=== PATIENT | male | born 1930 | race Caucasian/White ===

== ENCOUNTER → 2016-11-03 | Outpatient (REF) | payer MEDICARE, OTHER | LOC: M SFHCCLAY 11:40 | PROVIDERS: ATTEND Family Medicine | DX: E11.9 Type 2 diabetes mellitus without complications (principal); Z53.8 Procedure and treatment not carried out for other reasons ==

== ENCOUNTER → 2016-11-10 | Outpatient (REF) | payer MEDICARE, OTHER ==
[2016-11-10 11:42] LABS: CALCIUM LEVEL 9.2 MG/DL (8.8-10.2); CREATININE FOR GFR 1.28 MG/DL (0.70-1.30); GLOMERULAR FILTRATION RATE 56.6 (>35); POTASSIUM SERUM 4.2 MEQ/L (3.5-5.1)
== END | disposition home or self-care (01) ==
LOC: M SFHCCLAY 07:02
PROVIDERS: ATTEND Family Medicine
DX: E11.9 Type 2 diabetes mellitus without complications (principal)

== ENCOUNTER → 2017-03-30 | Outpatient (REF) | payer MEDICARE, OTHER ==
[2017-03-30 17:22] LABS: ALBUMIN 4.3 GM/DL (3.2-5.2); ALBUMIN/GLOBULIN RATIO 1.39 (1.00-1.93); BILIRUBIN,TOTAL 0.6 MG/DL (0.2-1.0); CALCIUM LEVEL 9.5 MG/DL (8.8-10.2); CREATININE FOR GFR 1.41 MG/DL (0.70-1.30); FREE T4 0.98 NG/DL (0.76-1.46); GLOMERULAR FILTRATION RATE 50.6 (>35); POTASSIUM SERUM 3.6 MEQ/L (3.5-5.1); TOTAL PROTEIN 7.4 GM/DL (6.4-8.2)
== END ==
LOC: M SFHCCLAY 12:24
PROVIDERS: ATTEND Family Medicine
DX: E11.9 Type 2 diabetes mellitus without complications (principal)

== ENCOUNTER → 2017-06-29 | Outpatient (CLI) | payer MEDICARE, BC, OTHER ==
[~2017-06-29] MED LIST: ADV500INH INH; AMLO5TAB2 PO; ASPI1TAB20 PO; ASPI325T PO; COLA100C5 PO; FENO134C PO; FINA5TAB2 PO; FLOM5CAP PO; FURO20TA2 PO; JANU100T PO; METF10004 PO; NORCOTAB PO; PANT40TA2 PO; PRAV40TA2 PO; SENN18TA PO; VITA1CAP40 PO
--- NOTE | 2017-06-29 11:13 | REP ---
Chest x-ray: Two views. History: Right-sided chest pain. Comparison chest x-ray: September 18, 2016. Findings: The patient is status post aortic valve replacement via median sternotomy. The heart is not enlarged. The aorta is somewhat tortuous unchanged. The lungs are symmetrically aerated and free of infiltrate. Pleural angles are sharp. There are mild degenerative changes in the thoracic spine. Pulmonary vasculature is not increased. Impression: No active disease. The patient status post aortic valve replacement.
== END ==
LOC: M CLY 10:01
PROVIDERS: ATTEND Family Medicine
DX: R07.9 Chest pain, unspecified (principal); Z95.2 Presence of prosthetic heart valve
CPT/HCPCS: 71020; 80069; 93005; G0463

== ENCOUNTER → 2017-06-29 | Outpatient (REF) | payer MEDICARE, OTHER ==
[2017-06-29 12:38] LABS: ALBUMIN 3.9 GM/DL (3.2-5.2); CALCIUM LEVEL 9.7 MG/DL (8.8-10.2); CREATININE FOR GFR 1.24 MG/DL (0.70-1.30); GLOMERULAR FILTRATION RATE 58.6 (>35); PHOSPHORUS LEVEL 2.1 MG/DL (2.5-4.9); POTASSIUM SERUM 3.8 MEQ/L (3.5-5.1)
== END ==
LOC: M SFHCCLAY 09:31
PROVIDERS: ATTEND Family Medicine
DX: E11.9 Type 2 diabetes mellitus without complications (principal)

== ENCOUNTER → 2017-07-17 | Outpatient (REF) | payer MEDICARE, BC, OTHER ==
[2017-07-17 17:57] LABS: TOTAL PROTEIN 7.4 GM/DL (6.4-8.2)
[2017-07-19 12:12] LABS: ALBUMIN 4.39 GM/DL (3.29-5.55); ALBUMIN % 59.3 % (55.8-66.1); GAMMA GLOBULIN % 12.7 % (11.1-18.8)
== END ==
LOC: M SFHCCLAY 11:42
PROVIDERS: ATTEND Family Medicine
DX: R07.81 Pleurodynia (principal); M89.8X9 Other specified disorders of bone, unspecified site; Z79.82 Long term (current) use of aspirin; Z79.899 Other long term (current) drug therapy
CPT/HCPCS: 84153; 84165; 85652; G0463

== ENCOUNTER → 2017-07-23 | Outpatient (CLI) | payer MEDICARE, BC, OTHER ==
--- NOTE | 2017-07-23 13:05 | REP ---
HIDA SCAN WITH GALLBLADDER EJECTION FRACTION: Following the intravenous administration of 6.6 mCi of technetium-99m mebrofenin, multiple images of the right upper quadrant are performed every 5 minutes for a period of 1 hour. Gallbladder is visualized at 10 minutes post injection. There is biliary to bowel transit at 50 minutes post injection with no scintigraphic evidence of a cholecystitis. At the 1 hour narinder 8 ounces of Ensure Enlive was ingested and further imaging performed for 1 hour. Gallbladder activity is measured and the gallbladder ejection fraction is calculated to be 86% which is normal. IMPRESSION: Normal gallbladder ejection fraction. Signed by Konrad Mo MD 07/23/2017 04:12 P
== END ==
LOC: M RAD 07:38
PROVIDERS: ATTEND Family Medicine
DX: R10.11 Right upper quadrant pain (principal)
CPT/HCPCS: 78227; A9537; J2805

== ENCOUNTER → 2017-08-01 | Outpatient (CLI) | payer MEDICARE, BC, OTHER ==
[~2017-08-01] MED LIST changes: +GASTROGRAFIN SOLUTION 30ML (Q9963) As Ordered ONE; +ISOVUE-370 76% 100ML VIAL (Q9967) As Ordered ONE
--- NOTE | 2017-08-01 17:06 | REP ---
CT abdomen and pelvis without and with IV contrast: With oral contrast. History: Weight loss. CT contrast dose: 100 ml of Isovue [address] findings: Preliminary digital glass cleaner radiograph is unremarkable. The lung bases are clear. The patient appears to be status post aortic valve replacement. The liver is normal in size and homogeneous in texture. There are multiple nonenhancing low density cysts in the spleen. The largest of these measures 1.7 cm in greatest diameter. No pancreatic abnormality is observed. No adrenal abnormality is seen. The kidneys enhance symmetrically. There is an intrarenal calculus in the lower pole collecting system left kidney measuring 5 mm in greatest diameter. There is a second smaller calculus even lower in the collecting system of the lower pole on the left. No hydronephrosis is seen. No intrarenal calculus is seen on the right. No retroperitoneal mass or adenopathy is seen. Small and large intestinal bowel loops are normal in the abdomen and pelvis. No gallbladder abnormality is seen. There are dystrophic calcifications in the mildly enlarged prostate. Seminal vesicles and urinary bladder are unremarkable. Bone window settings show no bony destructive lesion. Impression: Intrarenal nephrolithiasis left kidney. No hydronephrosis. Multiple small splenic cysts. No acute intra-abdominal abnormality. Signed by Alejandro Maravilla MD 08/01/2017 05:08 P
== END ==
LOC: M RAD 14:04
PROVIDERS: ATTEND Family Medicine
DX: R64 Cachexia (principal); N20.0 Calculus of kidney; N28.1 Cyst of kidney, acquired
CPT/HCPCS: 74178; Q9963; Q9967

== ENCOUNTER → 2017-08-16 | Outpatient (CLI) | payer MEDICARE, BC, OTHER ==
[~2017-08-16] MED LIST changes: -GASTROGRAFIN SOLUTION 30ML (Q9963) As Ordered ONE; -ISOVUE-370 76% 100ML VIAL (Q9967) As Ordered ONE
--- NOTE | 2017-08-17 09:14 | REP ---
CT brain without contrast: History: Vocal cord paralysis. COPD. Question metastasis. No comparison brain CT. Findings: Preliminary digital lateral interior block wirer radiograph is unremarkable. Bone window settings show an intact bony calvarium. Visualized paranasal sinuses are clear. Vascular calcification is seen in the distal carotid arteries and distal vertebral arteries bilaterally. There is diffuse moderate cerebral atrophy. There is no evidence of intracranial hemorrhage. No extra-axial fluid collection is seen. There is a small lacunar infarct in the left basal ganglia. There is no evidence of acute cortical infarction. No extra-axial fluid collection, mass, or midline shift is seen. Impression: Diffuse moderate atrophy. Vascular calcification. Old lacunar infarct. No acute intracranial abnormality. Signed by Alejandro Maravilla MD 08/17/2017 02:55 P
--- NOTE | 2017-08-17 09:24 | REP ---
Soft-tissue neck CT without contrast: History: Paralysis of the vocal cord/larynx. COPD. Question metastasis. Comparison chest CT study September 29, 2016. CT findings: Parotid and submandibular glands are normal and symmetric. Thyroid lobes are unremarkable. Epiglottis has a normal appearance. No soft or hard palate lesion is seen. Vascular calcification is noted in the carotid arteries. No cervical adenopathy is seen. There is asymmetry at the larynx with anterior displacement of the arytenoid cartilage on the left compared to the right and asymmetry along the true vocal cord on the left. In addition, there is circumferential esophageal wall thickening and mass effect in the upper esophagus at the thoracic inlet extending at least down to the level of the aortic arch consistent with esophageal malignancy. This is a new finding. There are three small adjacent paraesophageal lymph nodes on the right in the superior mediastinum. The largest of these measures 1.1 x 0.7 cm. There is a left supraclavicular 10 mm lymph node which appears spherical. No other evidence of adenopathy. No bony destructive lesion is seen. There are degenerative disc changes in the cervical spine. Visualized paranasal sinuses are clear. Impression: Circumferential wall thickening and mass effect in the upper thoracic esophagus at the thoracic inlet consistent with esophageal malignancy. There are three adjacent paraesophageal lymph nodes on the right. Asymmetry at the glottis consistent with vocal cord paralysis on the left. There is a rounded left supraclavicular lymph node measuring 1.0 cm in diameter. No other neck adenopathy. Signed by Alejandro Maravilla MD 08/17/2017 02:55 P
--- NOTE | 2017-08-17 11:39 | REP ---
CT STUDY OF THE CHEST WITHOUT IV CONTRAST: HISTORY: Vocal cord paralysis. COPD. Question metastasis. Comparison CT study: September 29, 2016. CT FINDINGS: Preliminary digital watch guard gate radiographs revealed that the patient is status post aortic valve replacement via median sternotomy. There is no evidence of pleural or pericardial effusion. No adrenal lesion is seen. The visualized upper abdominal structures are unremarkable. Vascular calcification is noted. Images through the upper mediastinum show mural thickening prominently affecting the proximal thoracic esophagus suggesting an upper thoracic esophageal neoplasm. There are three adjacent superior mediastinal lymph nodes seen. The mural thickening is new. The lymph nodes were present previously although at last one of these is slightly larger. These nodes are better seen on the neck CT. No other mediastinal mass or adenopathy is observed. Lung window settings demonstrate early bilateral pleural plaquing with several foci of pleural calcification. No pulmonary nodule or mass lesion is observed. No bony destructive lesion. IMPRESSION: There is mural thickening affecting the upper thoracic esophagus suggesting esophageal neoplasm. There are three adjacent normal-sized superior mediastinal para-esophageal lymph nodes. Prior sternotomy and aortic valve replacement. 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 Signed by Alejandro Maravilla MD 08/17/2017 02:55 P
== END ==
LOC: M RAD 17:35
PROVIDERS: ATTEND Family Medicine
DX: J44.9 Chronic obstructive pulmonary disease, unspecified (principal); J38.00 Paralysis of vocal cords and larynx, unspecified

== ENCOUNTER 2017-08-21 17:10 | Inpatient (IN) | payer MEDICARE, BC, OTHER ==
[~2017-08-21] VITALS: Ht 157.5 cm; Wt 57.7 kg
[2017-08-21] MEDS ORDERED: AMLO5TAB2 PO (17:29)
[2017-08-21] MEDS ORDERED: PANT40TA2 PO (17:29)
[2017-08-21] MEDS ORDERED: VITA1CAP40 PO (17:29)
[2017-08-21] MEDS ORDERED: METF10004 PO (17:29)
[2017-08-21] MEDS ORDERED: FENO134C PO (17:29)
[2017-08-21] MEDS ORDERED: FINA5TAB2 PO (17:29)
[2017-08-21] MEDS ORDERED: FLOM5CAP PO (17:29)
[2017-08-21] MEDS ORDERED: ASPI1TAB20 PO (17:29)
[2017-08-21] MEDS ORDERED: PRAV40TA2 PO (17:29)
[2017-08-21] MEDS ORDERED: JANU100T PO (17:29)
[2017-08-21] MEDS ORDERED: FURO20TA2 PO (17:29)
[2017-08-21] MEDS ORDERED: NS 1,000 ML IV ONE (18:00)
[2017-08-21] MEDS ORDERED: ADV500INH INH (18:28)
[2017-08-21] MEDS ORDERED: ASPI325T PO (18:28)
[2017-08-21 18:58] LABS: BASO # 0.1 10^3/uL (0.0-0.2); BASO % 0.5 % (0.0-1.0); EOS # 0.2 10^3/uL (0.0-0.50); EOS % 1.5 % (0.0-3.0); IMMATURE GRANULOCYTE % 0.9 % (0-0); LYMPH # 1.7 10^3/uL (1.5-4.5); LYMPH % 16.3 % (24.0-44.0); MEAN CORPUSCULAR HEMOGLOBIN 32.1 pg (27.0-33.0); MEAN CORPUSCULAR HGB CONC 34.9 g/dl (32.0-36.5); MONO # 1.1 10^3/uL (0.0-0.8); MONO % 10.1 % (0.0-5.0); NEUTROPHILS # 7.6 10^3/uL (1.8-7.7); NEUTROPHILS % 70.7 % (36.0-66.0); PLATELET COUNT, AUTOMATED 258 10^3/uL (150-450); RED CELL DISTRIBUTION WIDTH 15.6 % (11.5-14.5); WHITE BLOOD COUNT 10.7 10^3/uL (4.0-10.0)
[2017-08-21 19:10] LABS: INR 0.97
[2017-08-21 19:25] LABS: ALBUMIN/GLOBULIN RATIO 1.11 (1.00-1.93); BILIRUBIN,DIRECT 0.1 MG/DL (0.0-0.2); BILIRUBIN,TOTAL 0.4 MG/DL (0.2-1.0); CREATININE FOR GFR 1.44 MG/DL (0.70-1.30); GLOMERULAR FILTRATION RATE 49.3 (>35); POTASSIUM SERUM 4.1 MEQ/L (3.5-5.1); TOTAL PROTEIN 7.6 GM/DL (6.4-8.2)
--- NOTE | 2017-08-21 20:19 | REP ---
HISTORY: Abdominal pain. COMPARISON: 06/29/2017. Note is again made of previous median sternotomy and mild cardiomegaly. Note is again made of fibrotic changes, status quo. No acute patchy parenchymal opacities or pleural effusions have developed. There is no change in the osseous structures. IMPRESSION: Stable chronic changes as described above without plain radiographic evidence of acute cardiopulmonary disease. Signed by Robert Wu DO 08/24/2017 06:11 P
[2017-08-21] MEDS ORDERED: ACETAMINOPHEN 650 MG SUPP PR PRN (21:00)
[2017-08-21] MEDS ORDERED: IPRATROPIUM 0.5MG/ALBUTEROL 2.5MG INH SOL UD 3ML (DUONEB)(J7620) NEB PRN (21:15)
[2017-08-21] MEDS ORDERED: GLUCOSE 4 GM CHEW TABLET PO PRN (21:30)
[2017-08-21] MEDS ORDERED: DEXTROSE 50% 50 ML SYRINGE IV PRN (21:30)
[2017-08-21] MEDS ORDERED: SODIUM CHLORIDE 0.9% 1000 ML IV ONE (21:30)
[2017-08-21] MEDS ORDERED: GLUCAGON FOR INJ 1 MG VIAL (J1610) SC PRN (21:30)
[2017-08-21] MEDS: ONDANSETRON 4MG/2ML VIAL (J2405) IV PRN (21:35)
[2017-08-21] MEDS: MORPHINE 2 MG/ML 1ML SYRINGE IV PRN (21:43)
--- NOTE | 2017-08-21 21:48 | HPEPDOC ---
[facility] Medical History & Physical Date of Admission Aug 21, 2017 Primary Care Physician: Harpreet De Anda MD Attending Physician: Luis Mccollum MD History and Physical CHIEF COMPLAINT: Hoarseness, dysphagia and weight loss of 25 pounds in 2 months HISTORY OF PRESENT ILLNESS: 87-year-old gentleman seen in the emergency department has had a history of dysphagia, hoarseness 0.5 pounds of weight loss over 2 months. He's also had some vague right-sided chest discomfort was seen by ENT in [place] had laryngoscopy done and was told that he had partial vocal cord paralysis. His family is concerned because he does appear to be overall deteriorating generalized weakness and complaining of chest discomfort and pain. He was sent by his primary care provider to the emergency department due to his ongoing complaints. Recent CT scan without IV contrast on :There is mural thickening affecting the upper thoracic esophagus suggesting esophageal neoplasm. There are three adjacent normal-sized superior mediastinal para-esophageal lymph nodes. Prior sternotomy and aortic valve replacement. 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 PAST MEDICAL HISTORY: HTN DIABETES ASTHMA AORTIC VALVE REPLACEMENT PAST SURGICAL HISTORY: HERNIA REPAIRS X 2 AORTIC VALVE REPLACEMENT FEBRUARY 2011 CATARACTS REMOVED DEBBY 2015 [facility] SOCIAL HISTORY: , former smoker. Drinks 2 cups of coffee a day. No recent travel. No history of sick contacts FAMILY HISTORY: FATHER: MOTHER: 2 BROTHER(S) , 1 SISTER(S) . 1 SON(S) , 1 DAUGHTER(S) . 1 SISTER . ALLERGIES: Please see below. REVIEW OF SYSTEMS: CONSTITUTIONAL: 25 lbs weight loss over last couple months. No fever, chills, weight loss, nausea or vomiting . HEENT: Hoarseness with speech and told previously by ENT that he has partial laryngeal paralysis. Positive dysphagia. No headache, lightheadedness, blurred or loss of vision. CARDIOVASCULAR: Right-sided chest pain. Which appears to be pleuritic in nature , reproducible with deep inspiration. No palpitations, paroxysmal nocturnal dyspnea or lower extremity edema RESPIRATORY: No cough, productive sputum, wheeze or hemoptysis GENITOURINARY: No dysuria, frequency, or discharge MUSCULOSKELETAL: No bone, muscle or joint pain. GASTROINTESTINAL: Cachexia as outlined above, decreased appetite, dysphagia. No Nausea, vomiting. Bowel movements are regular without hematochezia or melena. No bladder or bowel incontinence. SKIN: No complaint of lesions, abrasions or rashes NEUROLOGICAL: No blurred vision, headaches, paraesthesias or paralysis PSYCHIATRIC: No depression, anxiety, audiovisual hallucinations. No suicidal ideations. ENDOCRINE: Denies history of diabetes or thyroid disorder. No history of endocrine abnormalities. HEMATOLOGIC/LYMPHATIC: No lumpbs, bumps or swelling of neck, axilla or groin. No night sweats or weight loss. HOME MEDICATIONS: Please see below. PHYSICAL EXAMINATION: VITAL SIGNS: See below GENERAL APPEARANCE: No acute distress, alert, pleasant, however, his voice is quite hoarse. HEENT: PERRLA. Throat clear. Neck supple, no adenopathy, no JVD. CARDIOVASCULAR: Regular rate and rhythm. LUNGS: Clear to auscultation. ABDOMEN: Soft, anteroseptal positive bowel sounds, masses or rebound. MUSCULOSKELETAL: No Gross deformities. EXTREMITIES: No edema, no calf tenderness. NEUROLOGICAL: Cranial nerves II through XII grossly intact. PSYCHIATRIC: Negative. LABORATORY DATA: See below. IMAGING: CT angiogram of the chest is pending to rule out PE due to his pleuritic chest pain and what appears to be esophageal cancer on CT scan. Twelve-lead EKG: Normal sinus rhythm, no acute findings MICROBIOLOGY: Please see below. Impression Mr. Jesus is a pleasant 87-year-old gentleman presents to the emergency department with 25 pound weight loss, cachexia, dysphagia and appears to have CT scan demonstrating mucosal thickness and possible esophageal cancer. He does have a significant history of tobacco use. And we had a discussion regarding admitting making nothing by mouth surgical consult, possible EGD and biopsy as well. Consideration for PEG tube placement. Problem list: 1. Dysphagia with cachexia and significant findings on CT scan suggestive of esophageal cancer. 2. Chest pain, rule out PE. 3. Lactic acidosis possibly from ketosis and starvation. He does not appear to be acutely infected. 4. HTN 5. DIABETES 6. ASTHMA 7. AORTIC VALVE REPLACEMENT PLAN: Admit [facility] on remote telemetry per Dr. Mccollum service. He wouldn't, and likely he appears to be stable. However, his pleuritic chest pain is concerning since he does have a what appears to be esophageal cancer and could be at risk for venous thromboembolism. CT angiogram of the chest is pending. In the meantime, his lactic acidosis is likely not septic and related any infection. We 'll go ahead and fluid bolus him and continue with IV fluids at 100 mL an hour through the night. For the time being, we'll leave him nothing by mouth we'll consult Dr. Alvarez for possible EGD biopsy and possible PEG tube placement. General surgery, Speech therapy consult was placed as well as PFS and cancer nurse navigator. DVT prophylaxis with Lovenox. End-of-life discussion: Patient is currently a full code but is to discuss further with his family members. Given the fact that he may have esophageal cancer, what his further wishes would be. Disposition: Likely be here greater than 2 midnights. Vital Signs Vital Signs Date Time Temp Pulse Resp B/P (MAP) Pulse Ox O2 Delivery O2 Flow Rate FiO2 08/21/17 18:46 08/21/17 17:21 97.0 93 20 95 Room Air Laboratory Data Labs 24H Laboratory Tests 2 08/21/17 18:38: Immature Granulocyte % (Auto) 0.9H, White Blood Count 10.7H, Red Blood Count 4.36, Hemoglobin 14.0, Hematocrit 40.1L, Mean Corpuscular Volume 92.0, Mean Corpuscular Hemoglobin 32.1, Mean Corpuscular Hemoglobin Concent 34.9, Red Cell Distribution Width 15.6H, Platelet Count 258, Neutrophils (%) (Auto) 70.7H, Lymphocytes (%) (Auto) 16.3L, Monocytes (%) (Auto) 10.1H, Eosinophils (%) (Auto ) 1.5, Basophils (%) (Auto) 0.5, Neutrophils # (Auto) 7.6, Lymphocytes # (Auto) 1.7, Monocytes # (Auto) 1.1H, Eosinophils # (Auto) 0.2, Basophils # (Auto) 0.1, Immature Granulocyte # (Auto) 0.1H, Nucleated Red Blood Cells % (auto) 0.0, Prothrombin Time 13.0, Prothromb Time International Ratio 0.97, Activated Partial Thromboplast Time 31.2, Anion Gap 10, Glomerular Filtration Rate 49.3, Lactic Acid Level 2.8*H, Calcium Level 11.0H, Aspartate Amino Transf (AST/SGOT) 5L, Alanine Aminotransferase (ALT/SGPT) 17, Alkaline Phosphatase 37L, Total Bilirubin 0.4, Direct Bilirubin 0.1, Total Protein 7.6, Albumin 4.0, Albumin/ Globulin Ratio 1.11, Amylase Level 47, Lipase 165 CBC/BMP Laboratory Tests 08/21/17 18:38 Red Blood Count 4.36, Mean Corpuscular Volume 92.0, Mean Corpuscular Hemoglobin 32.1, Mean Corpuscular Hemoglobin Concent 34.9, Red Cell Distribution Width 15.6 H, Neutrophils (%) (Auto) 70.7 H, Lymphocytes (%) (Auto) 16.3 L, Monocytes (%) (Auto) 10.1 H, Eosinophils (%) (Auto) 1.5, Basophils (%) (Auto) 0.5, Neutrophils # (Auto) 7.6, Lymphocytes # (Auto) 1.7, Monocytes # (Auto) 1.1 H, Eosinophils # (Auto) 0.2, Basophils # (Auto) 0.1 Microbiology Microbiology 08/21/17 Blood Culture, Received Pending 08/21/17 Blood Culture, Received Pending Home Medications Scheduled Amlodipine Besylate (Amlodipine Besylate) 5 Mg Tab, 5 MG PO DAILY Aspirin (Aspirin) 325 Mg Tab, 325 MG PO DAILY Ergocalciferol (Vitamin D) 50,000 Unit Cap, 50,000 UNITS PO QWEEK SUNDAYS Fenofibrate (Fenofibrate Micronized) 134 Mg Cap, 134 MG PO DAILY Finasteride (Finasteride) 5 Mg Tab, 5 MG PO QPM Furosemide (Furosemide) 20 Mg Tab, 20 MG PO DAILY Metformin Hydrochloride (Metformin HCl) 1,000 Mg Tab, 1,000 MG PO BID Pantoprazole Sodium (Pantoprazole Sodium) 40 Mg Tab, 40 MG PO BID Pravastatin Sod (Pravastatin Sodium) 40 Mg Tab, 40 MG PO QPM Salmeterol/Fluticasone (Advair Diskus 500-50 Mcg/Dose) 28 Puff/Inhaler Aerp, 1 PUFF INH BID Sitagliptin Phosphate (Januvia) 100 Mg Tab, 100 MG PO QPM Tamsulosin Hydrochloride (Flomax) 0.4 Mg Cap, 0.4 MG PO QPM Scheduled PRN Aspirin (Aspirin) 325 Mg Tab, 325 MG PO BID PRN for PAIN Allergies Coded Allergies: No Known Drug Allergy (Unverified Allergy, Unknown, NONE, 01/21/13) SHEELA GR DO Aug 21, 2017:48
--- NOTE | 2017-08-21 21:59 | ECGEPIP ---
Stationary ECG Study [facility] - ED Test Date: 2017-08-21 Pat Name: KEYONA BOYCE Department: Room: - Gender: M Assistant Winemaker: rose : [phone] Requested By: Eva Lindsay Order Number: [id number] Reading MD: Jeff Gresham Measurements Intervals [place] Rate: 95 P: 31 CT: 196 QRS: -38 QRSD: 91 T: 12 QT: 329 QTc: 414 Interpretive Statements SINUS RHYTHM WITH FREQUENT SUPRAVENTRICULAR PREMATURE COMPLEXES POSSIBLE LEFT ATRIAL ENLARGEMENT ANTERIOR MYOCARDIAL INFARCTION, OF INDETERMINATE AGE INFERIOR MYOCARDIAL INFARCTION, PROBABLY OLD NO PRIORS FOR COMPARISON Electronically Signed On 08-21-2017 21:59:00 EDT by Jeff Gresham
[2017-08-21] MEDS ORDERED: ISOVUE-370 76% 100ML VIAL (Q9967) As Ordered ONE (22:32)
--- NOTE | 2017-08-21 23:10 | REPUSA ---
CT angiogram of the chest Clinical statement: Chest pain and shortness of breath. Esophageal cancer. Technique: Multiple axial CT images were obtained from the thoracic inlet through the upper abdomen a fter a bolus administration of nonionic intravenous contrast. Coronal and sagittal reconstructions we re also obtained. Comparison: 08/16/2017. Findings: The pulmonary arteries are well-opacified with contrast, with no intraluminal filling defec ts to suggest embolism. There is circumferential wall thickening of the proximal third of the esophag us. No invasive changes are noted. The thoracic aorta is unremarkable. Thyroid gland is within normal limits. There is no thoracic lymphadenopathy. There are no pericardial or pleural effusions. The jad gs are clear. Limited imaging of the upper abdomen is unremarkable. There are no suspicious osseous l esions. Impression: 1. No evidence of pulmonary embolism. 2. No acute infiltrates. 3. Circumferential thickening of the wall of the proximal esophagus corresponds with the patient's kn own esophageal cancer diagnosis.
[2017-08-21 23:45] VITALS: BP 147/69
[2017-08-22] MEDS: HumaLOG INSULIN (NovoLOG) PER UNIT SC SCH ×4 (00:36→17:40)
[2017-08-22] MEDS: NS 1,000 ML IV SCH ×3 (00:40→21:47)
[2017-08-22] MEDS: MORPHINE 2 MG/ML 1ML SYRINGE IV PRN ×2 (00:50→06:05)
[2017-08-22 06:00] VITALS: BP 130/63
[2017-08-22 06:10] LABS: MEAN CORPUSCULAR HEMOGLOBIN 31.3 pg (27.0-33.0); MEAN CORPUSCULAR HGB CONC 34.2 g/dl (32.0-36.5); MEAN CORPUSCULAR VOLUME 91.7 fl (80.0-96.0); PLATELET COUNT, AUTOMATED 209 10^3/uL (150-450); RED CELL DISTRIBUTION WIDTH 15.7 % (11.5-14.5); WHITE BLOOD COUNT 9.7 10^3/uL (4.0-10.0)
[2017-08-22 06:33] LABS: ANION GAP 7 MEQ/L (8-16); BLOOD UREA NITROGEN 25 MG/DL (7-18); CALCIUM LEVEL 9.6 MG/DL (8.8-10.2); CARBON DIOXIDE LEVEL 27 MEQ/L (21-32); CHLORIDE LEVEL 107 MEQ/L (98-107); CREATININE FOR GFR 1.06 MG/DL (0.70-1.30); GLOMERULAR FILTRATION RATE > 60.0 (>35); GLUCOSE, FASTING 163 MG/DL (83-110); POTASSIUM SERUM 3.7 MEQ/L (3.5-5.1); SODIUM LEVEL 141 MEQ/L (136-145)
[2017-08-22] MEDS: ENOXAPARIN 30 MG/0.3 ML SYR (J1650) SC SCH (09:32)
--- NOTE | 2017-08-22 09:37 | CR.PDOC ---
General Surgery Consultation Date of Consultation 08/22/17 History and Physical CONSULT REPORT FOR: Dr. Mccollum REASON FOR CONSULTATION: dysphagia, esophageal mass, hoarsenss HISTORY OF PRESENT ILLNESS: Patient admitted overnight for complaints of worsening dysphagia initially to solids and now also to liquids for the past 2- 3 months with associated weight loss about 25 pounds. Also associated worsens of his voice for about 2 months now. 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 A CT of the head, neck, chest was done at the end of July showing a circumferential mass/thickening in the thoracic esophagus. Seen by Dr. Hernandez last week and was evaluated for full workup and possibly speech therapist for the dysphagia. Due to the worsening of his symptoms he was subsequently admitted last night. A midline asked to see the patient to consider upper endoscopy and tissue biopsy and also possibly placing a percutaneous endoscopic gastrostomy feeding tube. PAST MEDICAL HISTORY: HTN DIABETES ASTHMA AORTIC VALVE REPLACEMENT PAST SURGICAL HISTORY: INCLUDES: HERNIA REPAIRS X 2 AORTIC VALVE REPLACEMENT FEBRUARY 2011 CATARACTS REMOVED DEBBY 2015 [facility] ALLERGIES: Please see below. FAMILY/SOCIAL HISTORY: , former smoker. Drinks 2 cups of coffee a day. No recent travel. No history of sick contacts HOME MEDICATIONS: Please see below. REVIEW OF SYSTEMS: GENERAL: Reports 25 lb weight loss in 2 months HEENT: Reports hoarseness in his voice, seen by ENT in [place], laryngoscopy shows paralysis of vocal cords per hospitalist notes NECK: Reports right-sided neck pain CARDIOVASCULAR: Reports right-sided chest pain that goes to the shoulders and back. MUSCULOSKELETAL: Denies arthralgias, back pain and thrombophlebitis. SKIN: Denies rash. NEUROLOGIC: Denies headache, stroke and transient ischemic attack. PSYCHIATRIC: Denies anxiety and depression. ENDOCRINE: Denies thyroid disease. HEMATOLOGY/ONCOLOGY: Denies bleeding or clotting disorder on full dose aspirin 325 mg daily. No blood thinners HEART: Denies any chest pains, palpitations, paroxysmal dyspnea, orthopnea. PULMONARY: Denies chronic cough, dyspnea and wheezing. GASTROINTESTINAL: Denies rectal bleeding, family history of colon cancer, constipation, diarrhea, dysphagia, heartburn and jaundice. Has had previous colonoscopies no previous upper endoscopies GENITOURINARY: Denies dysuria, frequency, hematuria and nocturia. ENDOCRINE: Denies polydipsia, polyphagia, polyuria, heat or cold intolerance. INFECTIOUS: Denies any recent upper respiratory tract infection, UTI, need for use of antibiotics. NUTRITION: Reports weight loss secondary to not being able to swallow well. PHYSICAL EXAMINATION: VITALS SIGNS: Please see below. GENERAL APPEARANCE:Patient seen, laying in bed, awake, alert, and oriented. Comfortable, in no acute distress. SKIN: Warm and dry. HEENT: Normocephalic, atraumatic. Bonham palpebral conjunctiva, anicteric sclerae. Lips and mucosa appear moist. NECK: Supple, no thyromegaly. No obvious jugular venous distention. No obvious enlarged or encased lymph nodes LUNGS: Clear to auscultation bilaterally. No wheezing appreciated. HEART: No chest wall abnormalities. Regular rate and rhythm with no murmurs appreciated. No palpable clavicular lymph nodes ABDOMEN: Abdomen is round, soft, nondistended. Nontender. EXTREMITIES: Extremities have no deformities. No edema identified ANCILLARIES: . LABORATORY DATA: Please see below. IMAGING STUDIES: CTA Chest 1. No evidence of pulmonary embolism. 2. No acute infiltrates. 3. Circumferential thickening of the wall of the proximal esophagus corresponds with the patient's known esophageal cancer diagnosis. Circumferential wall thickening and mass effect in the upper thoracic esophagus at the thoracic inlet consistent with esophageal malignancy. There are three adjacent paraesophageal lymph nodes on the right. Asymmetry at the glottis consistent with vocal cord paralysis on the left. There is a rounded left supraclavicular lymph node measuring 1.0 cm in diameter. 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 Possibly also francisco metastasis. Certainly this will need tissue biopsy to prove that this is cancer and I will schedule him for an upper GI endoscopy with biopsy of the area/mass. With regards to the feeding tube, if he was a candidate for surgery, he will need the stomach as a conduit after esophagectomy and a gastrostomy tube is relatively contraindicated. As his cancer is fairly locally advanced and somewhat considered unresectable given most likely encroachment to the recurrent laryngeal nerve, I think a feeding tube is an option for him while he undergoes chemotherapy radiation either as neoadjuvant therapy or palliative depending on further workup off the extent of his cancer which would include a PET/CT scan as an outpatient. Suggest referral to oncology for further workup afterwards. Thus I told him that if we can pass through the area of the narrowing we will place a gastrostomy feeding tube. If we are not able to pass through the narrowing endoscopically, he will need a surgical feeding tube. Consent was obtained for an upper GI endoscopy, possible placement of a feeding tube. . Will schedule him for EGD and biopsy today. Vital Signs Vital Signs Date Time Temp Pulse Resp B/P (MAP) Pulse Ox O2 Delivery O2 Flow Rate FiO2 08/22/17 06:15 16 Room Air 08/22/17 06:00 97.7 66 130/63 (85) 95 I&Os I&O- Last 24 Hours up to 6 AM 08/23/17 06:00 Intake Total 700 ml Balance 700 ml Laboratory Data Labs 24H Laboratory Tests 2 08/21/17 18:38: Immature Granulocyte % (Auto) 0.9H, White Blood Count 10.7H, Red Blood Count 4.36, Hemoglobin 14.0, Hematocrit 40.1L, Mean Corpuscular Volume 92.0, Mean Corpuscular Hemoglobin 32.1, Mean Corpuscular Hemoglobin Concent 34.9, Red Cell Distribution Width 15.6H, Platelet Count 258, Neutrophils (%) (Auto) 70.7H, Lymphocytes (%) (Auto) 16.3L, Monocytes (%) (Auto) 10.1H, Eosinophils (%) (Auto ) 1.5, Basophils (%) (Auto) 0.5, Neutrophils # (Auto) 7.6, Lymphocytes # (Auto) 1.7, Monocytes # (Auto) 1.1H, Eosinophils # (Auto) 0.2, Basophils # (Auto) 0.1, Immature Granulocyte # (Auto) 0.1H, Nucleated Red Blood Cells % (auto) 0.0, Prothrombin Time 13.0, Prothromb Time International Ratio 0.97, Activated Partial Thromboplast Time 31.2, Anion Gap 10, Glomerular Filtration Rate 49.3, Lactic Acid Level 2.8*H, Calcium Level 11.0H, Aspartate Amino Transf (AST/SGOT) 5L, Alanine Aminotransferase (ALT/SGPT) 17, Alkaline Phosphatase 37L, Total Bilirubin 0.4, Direct Bilirubin 0.1, Total Protein 7.6, Albumin 4.0, Albumin/ Globulin Ratio 1.11, Amylase Level 47, Lipase 165 08/21/17 23:03: Lactic Acid Followup at 4 Hours 1.3 08/22/17 00:24: Bedside Glucose (Misc Panel) 179H 08/22/17 05:41: Nucleated Red Blood Cells % (auto) 0.0, Anion Gap 7L, Glomerular Filtration Rate > 60.0, Calcium Level 9.6, Blood Urea Nitrogen 25H, Creatinine 1.06, Sodium Level 141, Potassium Level 3.7, Chloride Level 107, Carbon Dioxide Level 27 CBC/BMP Laboratory Tests 08/21/17 18:38 Red Blood Count 4.36, Mean Corpuscular Volume 92.0, Mean Corpuscular Hemoglobin 32.1, Mean Corpuscular Hemoglobin Concent 34.9, Red Cell Distribution Width 15.6 H, Neutrophils (%) (Auto) 70.7 H, Lymphocytes (%) (Auto) 16.3 L, Monocytes (%) (Auto) 10.1 H, Eosinophils (%) (Auto) 1.5, Basophils (%) (Auto) 0.5, Neutrophils # (Auto) 7.6, Lymphocytes # (Auto) 1.7, Monocytes # (Auto) 1.1 H, Eosinophils # (Auto) 0.2, Basophils # (Auto) 0.1 08/22/17 05:41 Red Blood Count 3.86 L, Mean Corpuscular Volume 91.7, Mean Corpuscular Hemoglobin 31.3, Mean Corpuscular Hemoglobin Concent 34.2, Red Cell Distribution Width 15.7 H, Calcium Level 9.6 Microbiology Microbiology 08/21/17 Blood Culture, Received Pending 08/21/17 Blood Culture, Received Pending Home Medications Scheduled Amlodipine Besylate (Amlodipine Besylate) 5 Mg Tab, 5 MG PO DAILY, (Reported) Aspirin (Aspirin) 325 Mg Tab, 325 MG PO DAILY, (Reported) Ergocalciferol (Vitamin D) 50,000 Unit Cap, 50,000 UNITS PO QWEEK, (Reported) SUNDAYS Fenofibrate (Fenofibrate Micronized) 134 Mg Cap, 134 MG PO DAILY, (Reported) Finasteride (Finasteride) 5 Mg Tab, 5 MG PO QPM, (Reported) Furosemide (Furosemide) 20 Mg Tab, 20 MG PO DAILY, (Reported) Metformin Hydrochloride (Metformin HCl) 1,000 Mg Tab, 1,000 MG PO BID, (Reported ) Pantoprazole Sodium (Pantoprazole Sodium) 40 Mg Tab, 40 MG PO BID, (Reported) Pravastatin Sod (Pravastatin Sodium) 40 Mg Tab, 40 MG PO QPM, (Reported) Salmeterol/Fluticasone (Advair Diskus 500-50 Mcg/Dose) 28 Puff/Inhaler Aerp, 1 PUFF INH BID, (Reported) Sitagliptin Phosphate (Januvia) 100 Mg Tab, 100 MG PO QPM, (Reported) Tamsulosin Hydrochloride (Flomax) 0.4 Mg Cap, 0.4 MG PO QPM, (Reported) Scheduled PRN Aspirin (Aspirin) 325 Mg Tab, 325 MG PO BID PRN for PAIN, (Reported) Allergies Coded Allergies: No Known Drug Allergy (Unverified Allergy, Unknown, NONE, 01/21/13) HECTOR MCKEON MD Aug 22, 2017 09:37
--- NOTE | 2017-08-22 11:33 | IPNPDOC ---
Subjective Date Seen The patient was seen on 08/22/17. Subjective Chief Complaint/HPI The patient is a 87-year-old male admitted with a reason for visit of Dysphagia; Esophageal Cancer. Events since last encounter Patient feels well other than inability to swallow and hoarse voice. Denies SOB or CP. Had 10 beats asymptomatic V=tach with ambulation to rest room this am Constitutional: Denies: Chills, Fever Pulmonary: Denies: Dyspnea, Cough Cardiovascular: Denies: Chest Pain, Palpitations Gastrointestinal: Denies: Nausea, Vomiting, Abdominal Pain, Diarrhea, Constipation Objective Physical Examination General Exam: Positive: Alert, No Acute Distress (Hoarse voice. No stridor) Chest Exam: Positive: Clear to auscultation, Normal air movement Heart Exam: Positive: Rate Normal, Regular Rhythm, Murmurs (DARLEEN at right base) Telemetry: Positive: Other Telemetry: (10 beat V-tach this morning) Abdomen Exam: Positive: Normal bowel sounds, Soft, Negative: Tenderness Extremity Exam: Negative: Edema Assessment /Plan Problems (1) Dysphagia Problem Text: CT with circumferential thickening of esophagus Dr. Fuentes saw patient in consultation. Planning EGD today for tissue biopsy and placement of PEG tube Will need Oncology eval to discuss treatment options. (2) Ventricular tachycardia seen on vice president of news Status: Resolved Problem Text: Had 10 beats V-tach on tele while ambulating to BR - asymptomatic EKG 08/21 shows NSR with frequent PSVCs, Inf and anterior infarct - age undetermined. No change c/w 11/2016 EKG from [facility] Check mag level. K+ = 3.7 - I will give some IV K+ JFW: had NONSUSTAINED VT, prob from hypokalemia/magnesemia; both addressed. I feel he is stable for EGD (3) Aortic valve replaced Status: Chronic Response to Treatment: Stable Problem Text: No antibiotic prophylaxis needed for EGD/PEG (4) CAD (coronary artery disease) Status: Chronic Response to Treatment: Stable (5) Diabetes Status: Chronic Response to Treatment: Stable Problem Text: HbA1c was 6.5 recently on Januvia, but I would not restart this due to his age and weight loss and risk for hypoglycemia in elderly patient. Tight control not necessary at this point. Cont SSI in hospital for now. (6) Asthma Status: Chronic Response to Treatment: Stable (7) Severe protein-calorie malnutrition Status: Chronic Problem Text: planning PEG tube for nutritional support Plan/VTE VTE Prophylaxis Ordered?: Yes (On Lovenox) VS, I&O, 24H, Fishbone Vital Signs/I&O Vital Signs Date Time Temp Pulse Resp B/P (MAP) Pulse Ox O2 Delivery O2 Flow Rate FiO2 08/22/17 06:15 16 Room Air 08/22/17 06:00 97.7 66 130/63 (85) 95 I&O- Last 24 Hours up to 6 AM 08/23/17 06:00 Intake Total 700 ml Output Total 0 ml Balance 700 ml Laboratory Data 24H LABS Laboratory Tests 2 08/21/17 18:38: Immature Granulocyte % (Auto) 0.9H, White Blood Count 10.7H, Red Blood Count 4.36, Hemoglobin 14.0, Hematocrit 40.1L, Mean Corpuscular Volume 92.0, Mean Corpuscular Hemoglobin 32.1, Mean Corpuscular Hemoglobin Concent 34.9, Red Cell Distribution Width 15.6H, Platelet Count 258, Neutrophils (%) (Auto) 70.7H, Lymphocytes (%) (Auto) 16.3L, Monocytes (%) (Auto) 10.1H, Eosinophils (%) (Auto ) 1.5, Basophils (%) (Auto) 0.5, Neutrophils # (Auto) 7.6, Lymphocytes # (Auto) 1.7, Monocytes # (Auto) 1.1H, Eosinophils # (Auto) 0.2, Basophils # (Auto) 0.1, Immature Granulocyte # (Auto) 0.1H, Nucleated Red Blood Cells % (auto) 0.0, Prothrombin Time 13.0, Prothromb Time International Ratio 0.97, Activated Partial Thromboplast Time 31.2, Anion Gap 10, Glomerular Filtration Rate 49.3, Lactic Acid Level 2.8*H, Calcium Level 11.0H, Aspartate Amino Transf (AST/SGOT) 5L, Alanine Aminotransferase (ALT/SGPT) 17, Alkaline Phosphatase 37L, Total Bilirubin 0.4, Direct Bilirubin 0.1, Total Protein 7.6, Albumin 4.0, Albumin/ Globulin Ratio 1.11, Amylase Level 47, Lipase 165 08/21/17 23:03: Lactic Acid Followup at 4 Hours 1.3 08/22/17 00:24: Bedside Glucose (Misc Panel) 179H 08/22/17 05:41: Nucleated Red Blood Cells % (auto) 0.0, Anion Gap 7L, Glomerular Filtration Rate > 60.0, Calcium Level 9.6, Blood Urea Nitrogen 25H, Creatinine 1.06, Sodium Level 141, Potassium Level 3.7, Chloride Level 107, Carbon Dioxide Level 27 CBC/BMP Laboratory Tests 08/21/17 18:38 Red Blood Count 4.36, Mean Corpuscular Volume 92.0, Mean Corpuscular Hemoglobin 32.1, Mean Corpuscular Hemoglobin Concent 34.9, Red Cell Distribution Width 15.6 H, Neutrophils (%) (Auto) 70.7 H, Lymphocytes (%) (Auto) 16.3 L, Monocytes (%) (Auto) 10.1 H, Eosinophils (%) (Auto) 1.5, Basophils (%) (Auto) 0.5, Neutrophils # (Auto) 7.6, Lymphocytes # (Auto) 1.7, Monocytes # (Auto) 1.1 H, Eosinophils # (Auto) 0.2, Basophils # (Auto) 0.1 08/22/17 05:41 Red Blood Count 3.86 L, Mean Corpuscular Volume 91.7, Mean Corpuscular Hemoglobin 31.3, Mean Corpuscular Hemoglobin Concent 34.2, Red Cell Distribution Width 15.7 H, Calcium Level 9.6 Microbiology Microbiology 08/21/17 Blood Culture, Received Pending 08/21/17 Blood Culture, Received Pending JACQUI MCCOLLUM PA-C Aug 22, 2017 11:33 uLis Mccollum MD Aug 22, 2017 14:11
[2017-08-22] MEDS: KCL 10MEQ IN 100ML SWI (KRUN) 10 MEQ in APPROPRIATE DILUENT 1 EA IV SCH ×8 (12:19→21:47)
[2017-08-22 12:45] LABS: MAGNESIUM LEVEL 1.6 MG/DL (1.8-2.4)
[2017-08-22 14:00] VITALS: BP 150/70
[2017-08-22] MEDS ORDERED: MAG SULF 1GM/100ML (MAG RUN) 1 GM in APPROPRIATE DILUENT 1 EA IV ONE (14:00)
--- NOTE | 2017-08-22 14:01 | IPNPDOC ---
Text Note Date of Service The patient was seen on 08/22/17. NOTE Patient was noted by Anesthesia during their preoperative workup that he had a run of Vtach this morning. K+ and Magnesium is low. They want the electrolytes corrected before proceding with anesthesia and the procedure. Will cancel the procedure today, replace electrolytes, re-schedule tomorrow. VS,Fishbone, I+O VS, Fishbone, I+O Laboratory Tests 08/21/17 18:38 Red Blood Count 4.36, Mean Corpuscular Volume 92.0, Mean Corpuscular Hemoglobin 32.1, Mean Corpuscular Hemoglobin Concent 34.9, Red Cell Distribution Width 15.6 H, Neutrophils (%) (Auto) 70.7 H, Lymphocytes (%) (Auto) 16.3 L, Monocytes (%) (Auto) 10.1 H, Eosinophils (%) (Auto) 1.5, Basophils (%) (Auto) 0.5, Neutrophils # (Auto) 7.6, Lymphocytes # (Auto) 1.7, Monocytes # (Auto) 1.1 H, Eosinophils # (Auto) 0.2, Basophils # (Auto) 0.1 08/22/17 05:41 Red Blood Count 3.86 L, Mean Corpuscular Volume 91.7, Mean Corpuscular Hemoglobin 31.3, Mean Corpuscular Hemoglobin Concent 34.2, Red Cell Distribution Width 15.7 H, Calcium Level 9.6 Vital Signs Date Time Temp Pulse Resp B/P (MAP) Pulse Ox O2 Delivery O2 Flow Rate FiO2 08/22/17 06:15 16 Room Air 08/22/17 06:00 97.7 66 130/63 (85) 95 I&O- Last 24 Hours up to 6 AM 08/23/17 06:00 Intake Total 700 ml Output Total 0 ml Balance 700 ml HECTOR MCKEON MD Aug 22, 2017 14:01
[2017-08-22 20:00] VITALS: BP 127/64
[2017-08-22] MEDS ORDERED: KCL 10MEQ IN 100ML SWI (KRUN) 10 MEQ in APPROPRIATE DILUENT 1 EA IV ONE ×2 (21:45)
[2017-08-22 23:00] VITALS: BP 165/77
[2017-08-23] VITALS (8 sets, daily range): BP systolic 140–164; BP diastolic 65–84
[2017-08-23] MEDS: HumaLOG INSULIN (NovoLOG) PER UNIT SC SCH ×4 (00:15→17:34)
[2017-08-23 06:43] LABS: MEAN CORPUSCULAR HEMOGLOBIN 31.8 pg (27.0-33.0); MEAN CORPUSCULAR HGB CONC 34.6 g/dl (32.0-36.5); MEAN CORPUSCULAR VOLUME 91.8 fl (80.0-96.0); PLATELET COUNT, AUTOMATED 206 10^3/uL (150-450); RED CELL DISTRIBUTION WIDTH 15.4 % (11.5-14.5)
[2017-08-23 07:05] LABS: ANION GAP 6 MEQ/L (8-16); BLOOD UREA NITROGEN 13 MG/DL (7-18); CALCIUM LEVEL 8.9 MG/DL (8.8-10.2); CARBON DIOXIDE LEVEL 26 MEQ/L (21-32); CHLORIDE LEVEL 108 MEQ/L (98-107); CREATININE FOR GFR 0.86 MG/DL (0.70-1.30); GLOMERULAR FILTRATION RATE > 60.0 (>35); GLUCOSE, FASTING 165 MG/DL (83-110); MAGNESIUM LEVEL 1.7 MG/DL (1.8-2.4); SODIUM LEVEL 140 MEQ/L (136-145)
[2017-08-23] MEDS: NS 1,000 ML IV SCH ×3 (08:10→19:50)
[2017-08-23] MEDS: ENOXAPARIN 30 MG/0.3 ML SYR (J1650) SC SCH (08:10)
[2017-08-23] MEDS ORDERED: INFLUENZA VIRUS VACCINE HIGH DOSE 0.5 ML SYRINGE (90662) IM ONE (09:00)
[2017-08-23] MEDS ORDERED: MAG SULF 1GM/100ML (MAG RUN) 1 GM in APPROPRIATE DILUENT 1 EA IV ONE (09:00)
--- NOTE | 2017-08-23 10:04 | IPNPDOC ---
Subjective Date Seen The patient was seen on 08/23/17. Subjective Chief Complaint/HPI The patient is a 87-year-old male admitted with a reason for visit of Dysphagia; Esophageal Cancer. Events since last encounter Had some transient right shoulder/back discomfort this am - resolved on it's own. Constitutional: Denies: Chills, Fever Pulmonary: Denies: Dyspnea, Cough Cardiovascular: Denies: Chest Pain, Palpitations, Orthopnea Gastrointestinal: Denies: Nausea, Vomiting, Abdominal Pain, Diarrhea, Constipation Objective Physical Examination General Exam: Positive: Alert, No Acute Distress (Hoarse voice. No stridor, breathing comfortably) Chest Exam: Positive: Clear to auscultation, Normal air movement Heart Exam: Positive: Rate Normal, Regular Rhythm, Murmurs (DARLEEN at right base) Telemetry: Positive: Other Telemetry: (NSR - no further V-tach) Abdomen Exam: Positive: Normal bowel sounds, Soft, Negative: Tenderness Extremity Exam: Negative: Edema Assessment /Plan Problems (1) Dysphagia Problem Text: CT with circumferential thickening of esophagus Dr. Fuentes saw patient in consultation. Planning EGD today for tissue biopsy and placement of PEG tube Will need Oncology eval to discuss treatment options. (2) Ventricular tachycardia seen on cardiac tech Status: Resolved Problem Text: 08/23 - No further V-tach K runs x4 given and IV mag run. Mag still low at 1.7. another Mag run ordered. Repeat level at 10:30 prior to EGD at noon - give furtehr mag if needed then. 08/22 - Had 10 beats V-tach on tele while ambulating to - asymptomatic EKG 08/21 shows NSR with frequent PSVCs, Inf and anterior infarct - age undetermined. No change c/w 11/2016 EKG from [facility] Check mag level. K+ = 3.7 - I will give some IV K+ JFW: had NONSUSTAINED VT, prob from hypokalemia/magnesemia; both addressed. I feel he is stable for EGD (3) Aortic valve replaced Status: Chronic Response to Treatment: Stable Problem Text: No antibiotic prophylaxis needed for EGD/PEG (4) CAD (coronary artery disease) Status: Chronic Response to Treatment: Stable (5) Diabetes Status: Chronic Response to Treatment: Stable Problem Text: HbA1c was 6.5 recently on Januvia, but I would not restart this due to his age and weight loss and risk for hypoglycemia in elderly patient. Tight control not necessary at this point. Cont SSI in hospital for now. (6) Asthma Status: Chronic Response to Treatment: Stable (7) Severe protein-calorie malnutrition Status: Chronic Problem Text: planning PEG tube for nutritional support (8) Hypomagnesemia Status: Acute Response to Treatment: Improving Problem Text: see above (9) Hypokalemia Status: Resolved Plan/VTE VTE Prophylaxis Ordered?: Yes (On Lovenox - held for EGD today) VS, I&O, 24H, Fishbone Vital Signs/I&O Vital Signs Date Time Temp Pulse Resp B/P (MAP) Pulse Ox O2 Delivery O2 Flow Rate FiO2 08/23/17 06:00 97.4 67 18 150/75 (100) 95 Room Air I&O- Last 24 Hours up to 6 AM 08/24/17 06:00 Intake Total 700 ml Output Total 300 ml Balance 400 ml Laboratory Data 24H LABS Laboratory Tests 2 08/22/17 11:59: Bedside Glucose (Misc Panel) 121H 08/23/17 06:29: Nucleated Red Blood Cells % (auto) 0.0, Anion Gap 6L, Glomerular Filtration Rate > 60.0, Blood Urea Nitrogen 13, Creatinine 0.86, Sodium Level 140, Potassium Level 4.0, Chloride Level 108H, Carbon Dioxide Level 26, Calcium Level 8.9, Magnesium Level 1.7L CBC/BMP Laboratory Tests 08/23/17 06:29 Red Blood Count 3.68 L, Mean Corpuscular Volume 91.8, Mean Corpuscular Hemoglobin 31.8, Mean Corpuscular Hemoglobin Concent 34.6, Red Cell Distribution Width 15.4 H, Calcium Level 8.9 Microbiology Microbiology 08/21/17 Blood Culture - Preliminary, Resulted No growth after 24 hours . All specim... 08/21/17 Blood Culture - Preliminary, Resulted No growth after 24 hours . All specim... AJCQUI BRO PA-C Aug 23, 2017 10:04
[2017-08-23] MEDS ORDERED: LIDOCAINE 2% INJ 100 MG/5 ML SDV (FOR ANES.) As Ordered ONE (12:12)
[2017-08-23] MEDS ORDERED: UNASYN 1.5 GM VIAL As Ordered ONE (12:19)
[2017-08-23] MEDS ORDERED: PROPOFOL 200 MG/20 ML VIAL As Ordered ONE (12:44)
[2017-08-23] MEDS: MORPHINE 2 MG/ML 1ML SYRINGE IV PRN ×2 (13:45→18:37)
[2017-08-24] VITALS (7 sets, daily range): BP systolic 129–171; BP diastolic 64–84
[2017-08-24] MEDS: HumaLOG INSULIN (NovoLOG) PER UNIT SC SCH ×4 (00:48→17:51)
[2017-08-24] MEDS: MORPHINE 2 MG/ML 1ML SYRINGE IV PRN ×4 (00:49→22:40)
[2017-08-24] MEDS: NS 1,000 ML IV SCH (06:11)
[2017-08-24 06:32] LABS: MEAN CORPUSCULAR HEMOGLOBIN 31.4 pg (27.0-33.0); MEAN CORPUSCULAR HGB CONC 34.2 g/dl (32.0-36.5); PLATELET COUNT, AUTOMATED 211 10^3/uL (150-450); RED CELL DISTRIBUTION WIDTH 15.5 % (11.5-14.5); WHITE BLOOD COUNT 10.5 10^3/uL (4.0-10.0)
[2017-08-24 06:53] LABS: ANION GAP 6 MEQ/L (8-16); BLOOD UREA NITROGEN 10 MG/DL (7-18); CALCIUM LEVEL 9.1 MG/DL (8.8-10.2); CARBON DIOXIDE LEVEL 25 MEQ/L (21-32); CHLORIDE LEVEL 108 MEQ/L (98-107); CREATININE FOR GFR 0.85 MG/DL (0.70-1.30); GLOMERULAR FILTRATION RATE > 60.0 (>35); GLUCOSE, FASTING 161 MG/DL (83-110); POTASSIUM SERUM 4.1 MEQ/L (3.5-5.1); SODIUM LEVEL 139 MEQ/L (136-145)
[2017-08-24] MEDS: ENOXAPARIN 30 MG/0.3 ML SYR (J1650) SC SCH (07:48)
[2017-08-24] MEDS ORDERED: INFLUENZA VIRUS VACCINE HIGH DOSE 0.5 ML SYRINGE (90662) IM ONE (09:00)
--- NOTE | 2017-08-24 11:38 | IPNPDOC ---
Subjective Date Seen The patient was seen on 08/24/17. Subjective Chief Complaint/HPI The patient is a 87-year-old male admitted with a reason for visit of Dysphagia; Esophageal Cancer. Events since last encounter No complaints Constitutional: Denies: Chills, Fever Pulmonary: Denies: Dyspnea, Cough Cardiovascular: Reports: Chest Pain, Denies: Palpitations Gastrointestinal: Denies: Nausea, Vomiting, Abdominal Pain, Diarrhea, Constipation Objective Physical Examination General Exam: Positive: Alert, No Acute Distress (Hoarse voice. No stridor, breathing comfortably) Chest Exam: Positive: Clear to auscultation, Normal air movement Heart Exam: Positive: Rate Normal, Regular Rhythm, Murmurs (DARLEEN at right base) Abdomen Exam: Positive: Normal bowel sounds, Soft, Negative: Tenderness Extremity Exam: Negative: Edema Assessment /Plan Problems (1) Esophageal mass Problem Text: s/p EGD 08/23 - biopsy performed Family requests referral to [place] for Oncology once pathology returns - defer to Dr. De Anda as outpatient. (2) Dysphagia Problem Text: CT with circumferential thickening of esophagus Dr. Fuentes saw patient in consultation. Unable to pass EGD past esophageal thickening yesterday to place PEG so planning open gastrotomy today Get [employer] consult for goal PEG tube feedings and type of feedings (3) Hypomagnesemia Status: Resolved (4) Ventricular tachycardia seen on property assessment monitor Status: Resolved Problem Text: 08/23 - No further V-tach K runs x4 given and IV mag run. Mag still low at 1.7. another Mag run ordered. Repeat level at 10:30 prior to EGD at noon - give furtehr mag if needed then. 08/22 - Had 10 beats V-tach on tele while ambulating to - asymptomatic EKG 08/21 shows NSR with frequent PSVCs, Inf and anterior infarct - age undetermined. No change c/w 11/2016 EKG from [facility] Check mag level. K+ = 3.7 - I will give some IV K+ JFW: had NONSUSTAINED VT, prob from hypokalemia/magnesemia; both addressed. I feel he is stable for EGD (5) Aortic valve replaced Status: Chronic Response to Treatment: Stable Problem Text: No antibiotic prophylaxis needed for EGD/PEG (6) CAD (coronary artery disease) Status: Chronic Response to Treatment: Stable (7) Diabetes Status: Chronic Response to Treatment: Stable Problem Text: HbA1c was 6.5 recently on Januvia, but I would not restart this due to his age and weight loss and risk for hypoglycemia in elderly patient. Tight control not necessary at this point. D/c SSI BS controlled. (8) Asthma Status: Chronic Response to Treatment: Stable (9) Severe protein-calorie malnutrition Status: Chronic Problem Text: planning PEG tube for nutritional support (10) Hypokalemia Status: Resolved Plan/VTE VTE Prophylaxis Ordered?: Yes (On Lovenox - held for EGD today) VS, I&O, 24H, Fishbone Vital Signs/I&O Vital Signs Date Time Temp Pulse Resp B/P (MAP) Pulse Ox O2 Delivery O2 Flow Rate FiO2 08/24/17 08:08 18 08/24/17 06:00 97.9 68 96 Room Air 08/23/17 22:00 140/65 (90) I&O- Last 24 Hours up to 6 AM 08/25/17 06:00 Intake Total 600 ml Output Total 300 ml Balance 300 ml Laboratory Data 24H LABS Laboratory Tests 2 08/24/17 06:19: Nucleated Red Blood Cells % (auto) 0.0, Anion Gap 6L, Glomerular Filtration Rate > 60.0, Blood Urea Nitrogen 10, Creatinine 0.85, Sodium Level 139, Potassium Level 4.1, Chloride Level 108H, Carbon Dioxide Level 25, Calcium Level 9.1 CBC/BMP Laboratory Tests 08/24/17 06:19 Red Blood Count 3.98 L, Mean Corpuscular Volume 92.0, Mean Corpuscular Hemoglobin 31.4, Mean Corpuscular Hemoglobin Concent 34.2, Red Cell Distribution Width 15.5 H, Calcium Level 9.1 Microbiology Microbiology 08/21/17 Blood Culture - Preliminary, Resulted No Growth after 48 hours. All Specime... 08/21/17 Blood Culture - Preliminary, Resulted No Growth after 48 hours. All Specime... JACQUI BRO PA-C Aug 24, 2017 11:38
[2017-08-24] MEDS: KCL 20MEQ IN 0.45NS 1000ML 1,000 ML IV SCH (12:23)
--- NOTE | 2017-08-24 17:55 | IPNPDOC ---
Subjective General Date/Time Seen The patient was seen on 08/24/17 at 17:51. Subject Chief Complaint/History The patient is a 87-year-old male admitted with a reason for visit of Dysphagia; Esophageal Cancer. 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 I was unable to pass through the area of the cancer at the proximal esophagus. Here today for laparoscopic placement of gastrostomy tube. Current Medications Current Medications Current Medications Acetaminophen (Tylenol Suppository) 650 mg Q4HP PRN [place] MILD PAIN OR FEVER; Start 08/21/17 at 21:00; Stop 09/20/17 at 20:59 Albuterol/ Ipratropium (Duoneb (Ipr 0.5mg/Alb 2.5mg)) 3 ml Q2HP PRN NEB SOB/ WHEEZING; Start 08/21/17 at 21:15; Stop 09/20/17 at 21:14 Dextrose (Dextrose 50%) 25 ml ASDIRECTED PRN IV SEE LABEL COMMENTS; Start at 21:30; Stop 09/20/17 at 21:29 Enoxaparin Sodium (Lovenox) 30 mg DAILY SC Last administered on 08/22/17 09:32 ; Start 08/22/17 at 09:00; Stop 08/27/17 at 08:59 Glucagon (Glucagon) 1 mg ASDIRECTED PRN SC SEE LABEL COMMENTS; Start 08/21/17 at 21:30; Stop 09/20/17 at 21:29 Glucose (Glucose) 16 GM ASDIRECTED PRN PO SEE LABEL COMMENTS; Start 08/21/17 at 21:30; Stop 09/20/17 at 21:29 Home Med (Med Rec Complete!) ASDIRECTED XX ; Start 08/21/17 at 18:30; Stop at 18:31; Status DC Insulin Human Lispro (HumaLOG INSULIN) SEE PROTOCOL TABLE Q6H SC Last administered on 08/24/17 00:48; Start 08/22/17 at 00:00; Stop 09/21/17 at 00:00 Morphine Sulfate (Morphine Sulfate Inj) 2 mg Q2HP PRN IV SEVERE PAIN (PS 8-10) Last administered on 08/24/17 12:50; Start 08/21/17 at 21:00; Stop 08/28/17 at 20:59 Ondansetron HCl (ZOFRAN INJection) 4 mg Q6HP PRN IV NAUSEA OR VOMITING Last administered on 08/21/17 21:35; Start 08/21/17 at 21:00; Stop 09/20/17 at 20 :59 Potassium Chloride 10 meq/ IV Miscellaneous Supplies 100 ml @ 100 mls/hr Q1H IV Last administered on 08/22/17 21:47; Start 08/22/17 at 12:00; Stop at 15:59; Status DC Potassium Chloride/Sodium Chloride 1,000 ml @ 60 mls/hr [id number] IV Last administered on 08/24/17 12:23; Start 08/24/17 at 12:00; Stop 09/23/17 at 11:59 Sodium Chloride 1,000 ml @ 100 mls/hr Q10H IV Last administered on 08/24/17 06:11; Start 08/21/17 at 21:00; Stop 08/24/17 at 11:50; Status DC Allergies Coded Allergies: No Known Drug Allergy (Unverified Allergy, Unknown, NONE, 01/21/13) Objective Physical Examination Examination GENERAL APPEARANCE:Patient seen, laying in bed, awake, alert, and oriented. Comfortable, in no acute distress. SKIN: Warm and moist. HEENT: Normocephalic, atraumatic. [place] palpebral conjunctiva, anicteric sclerae. Lips and mucosa appear moist. Hoarse voice NECK: Supple, no thyromegaly. No obvious jugular venous distention. LUNGS: Clear to auscultation bilaterally. No wheezing appreciated. HEART: No chest wall abnormalities. Regular rate and rhythm with no murmurs appreciated. ABDOMEN: Abdomen is round, soft, nondistended. nontender. EXTREMITIES: Extremities have no deformities. No edema identified. Vital Signs Vital Signs Date Time Temp Pulse Resp B/P (MAP) Pulse Ox O2 Delivery O2 Flow Rate FiO2 08/24/17 15:28 97.3 81 20 171/84 (113) 97 08/24/17 14:00 Room Air I&Os I&O- Last 24 Hours up to 6 AM 08/25/17 06:00 Intake Total 1100 ml Output Total 300 ml Balance 800 ml Laboratory Data Labs 24H Laboratory Tests 2 08/24/17 00:42: Bedside Glucose (Misc Panel) 171H 08/24/17 06:16: Bedside Glucose (Misc Panel) 162H 08/24/17 06:19: Nucleated Red Blood Cells % (auto) 0.0, Anion Gap 6L, Glomerular Filtration Rate > 60.0, Blood Urea Nitrogen 10, Creatinine 0.85, Sodium Level 139, Potassium Level 4.1, Chloride Level 108H, Carbon Dioxide Level 25, Calcium Level 9.1 08/24/17 12:16: Bedside Glucose (Misc Panel) 132H 08/24/17 16:38: Bedside Glucose (Misc Panel) 116H CBC/BMP Laboratory Tests 08/24/17 06:19 Red Blood Count 3.98 L, Mean Corpuscular Volume 92.0, Mean Corpuscular Hemoglobin 31.4, Mean Corpuscular Hemoglobin Concent 34.2, Red Cell Distribution Width 15.5 H, Calcium Level 9.1 Microbiology Microbiology 08/21/17 Blood Culture - Preliminary, Resulted No Growth after 48 hours. All Specime... 08/21/17 Blood Culture - Preliminary, Resulted No Growth after 48 hours. All Specime... 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 Risks and benefits of the procedure discussed with patient, Consent obtained. Plan / VTE VTE Prophylaxis Ordered?: Yes (On Lovenox - held for EGD today) HECTOR MCKEON MD Aug 24, 2017 17:55
[2017-08-24] MEDS ORDERED: LIDOCAINE 1% SDV INJ 30 ML VIAL As Ordered ONE (17:57)
[2017-08-24] MEDS ORDERED: BUPIVACAINE HCL 0.25% 30 ML VIAL As Ordered ONE (17:57)
[2017-08-24] MEDS ORDERED: fentaNYL 100 MCG/2 ML INJECTION (J3010) As Ordered ONE ×2 (18:01→20:42)
[2017-08-24] MEDS ORDERED: MIDAZOLAM INJ 2 MG/2 ML VIAL (J2250) As Ordered ONE (18:01)
[2017-08-24] MEDS ORDERED: ROCURONIUM BROMIDE 50 MG/5 ML VIAL As Ordered ONE (18:01)
[2017-08-24] MEDS ORDERED: PROPOFOL 200 MG/20 ML VIAL As Ordered ONE (18:01)
[2017-08-24] MEDS ORDERED: ETOMIDATE INJ 20MG/10ML VIAL As Ordered ONE (18:01)
[2017-08-24] MEDS ORDERED: UNASYN 1.5 GM VIAL As Ordered ONE (18:19)
[2017-08-24] MEDS ORDERED: ePHEDrine SULFATE 25 MG/5 ML(5MG/ML) SYRINGE As Ordered ONE (18:34)
[2017-08-24] MEDS ORDERED: PHENYLephrine HCL 500 MCG/5 ML (100MCG/ML) SYRINGE (J2370) As Ordered ONE (18:34)
[2017-08-24] MEDS ORDERED: NEOSTIGMINE 10 MG/10 ML VIAL (J2710) As Ordered ONE (19:07)
[2017-08-24] MEDS ORDERED: GLYCOPYRROLATE INJ 0.2 MG/ML 2 ML VIAL As Ordered ONE (19:07)
[2017-08-24] MEDS ORDERED: ONDANSETRON 4MG/2ML VIAL (J2405) As Ordered ONE (19:08)
[2017-08-24] MEDS: fentaNYL 100 MCG/2 ML INJECTION (J3010) IV PRN ×4 (20:43→21:07)
[2017-08-24] MEDS ORDERED: ONDANSETRON 4MG/2ML VIAL (J2405) IV PRN ×2 (20:45→21:15)
[2017-08-24] MEDS ORDERED: LR 1,000 ML IV SCH ×2 (20:45→21:15)
[2017-08-24] MEDS ORDERED: hydrALAZINE INJ 20 MG/ML VIAL As Ordered ONE (21:00)
[2017-08-24] MEDS: hydrALAZINE INJ 20 MG/ML VIAL IV SCH ×2 (21:02→21:15)
[2017-08-24] MEDS ORDERED: fentaNYL 100 MCG/2 ML INJECTION (J3010) IV PRN (21:15)
[2017-08-24] MEDS: ONDANSETRON 4MG/2ML VIAL (J2405) IV PRN (22:40)
[2017-08-25] VITALS (9 sets, daily range): BP systolic 131–166; BP diastolic 68–74
[2017-08-25] MEDS: HumaLOG INSULIN (NovoLOG) PER UNIT SC SCH ×3 (00:48→13:15)
[2017-08-25] MEDS: MORPHINE 2 MG/ML 1ML SYRINGE IV PRN ×2 (00:51→05:45)
[2017-08-25] MEDS: KCL 20MEQ IN 0.45NS 1000ML 1,000 ML IV SCH ×2 (03:48→21:32)
[2017-08-25 05:54] LABS: MEAN CORPUSCULAR HEMOGLOBIN 32.2 pg (27.0-33.0); MEAN CORPUSCULAR HGB CONC 35.6 g/dl (32.0-36.5); MEAN CORPUSCULAR VOLUME 90.5 fl (80.0-96.0); PLATELET COUNT, AUTOMATED 227 10^3/uL (150-450); RED CELL DISTRIBUTION WIDTH 15.5 % (11.5-14.5); WHITE BLOOD COUNT 13.7 10^3/uL (4.0-10.0)
[2017-08-25 06:23] LABS: ANION GAP 10 MEQ/L (8-16); BLOOD UREA NITROGEN 10 MG/DL (7-18); CALCIUM LEVEL 9.3 MG/DL (8.8-10.2); CARBON DIOXIDE LEVEL 22 MEQ/L (21-32); CHLORIDE LEVEL 106 MEQ/L (98-107); CREATININE FOR GFR 0.81 MG/DL (0.70-1.30); GLOMERULAR FILTRATION RATE > 60.0 (>35); GLUCOSE, FASTING 124 MG/DL (83-110); MAGNESIUM LEVEL 1.7 MG/DL (1.8-2.4); POTASSIUM SERUM 4.1 MEQ/L (3.5-5.1); SODIUM LEVEL 138 MEQ/L (136-145)
[2017-08-25] MEDS ORDERED: MORPHINE 2 MG/ML 1ML SYRINGE IV ONE (06:30)
[2017-08-25] MEDS: ENOXAPARIN 30 MG/0.3 ML SYR (J1650) SC SCH (09:07)
[2017-08-25] MEDS: MORPHINE 4 MG/ML 1ML SYRINGE IV PRN ×3 (09:08→21:33)
--- NOTE | 2017-08-25 14:02 | IPN ---
DATE: 08/25/2017 Curt is seen on [facility]. He had esophageal mass. Pathology suggests squamous cell carcinoma. He underwent laparoscopic gastrostomy feeding tube placement yesterday. Today, he has abdominal distention and pain, he needed morphine dose increase overnight. Esophageal cancer looks to be clinically T4 with extension into the recurrent laryngeal nerve on the left, possible lymph node involvement by CT scan. PHYSICAL EXAMINATION: Blood pressure 152/70, pulse 62, respiratory rate 17, 98% oxygen saturation. He is alert, conversant, visiting with family. Lungs: A few wheezes. Heart: Regular rhythm. Abdomen: Distended, soft. Bowel sounds are decreased. Mildly tender. No peripheral edema. LABORATORY: White count is up to 13.7, hemoglobin 12.8, platelets 227. Sodium 138, potassium 4.1, BUN 10, creatinine 0.8, glucose 124, magnesium 1.7. Blood sugars in the 100-150 range. IMPRESSION: 1. Postoperative ileus. Waiting for surgery to round. Suspect related to his laparoscopy yesterday. Will defer to surgery on this. 2. Esophageal cancer, probably T4. Pathology report is back but came back after I saw the patient today. I will discuss this more with the patient and his family tomorrow. Will get an oncology consultation on Sunday. 3. Dysphagia. Speech evaluation suggested altered consistency diet, which we ordered today. 4. Hypomagnesemia. IV magnesium has been ordered. 5. Nonsustained ventricular tachycardia (v tach). I suspect this is a fairly chronic ongoing situation for him, nonsustained and asymptomatic. Will keep up with his potassium and magnesium. 6. Diabetes. Blood sugar is normal. Stop fingersticks and coverage. 7. Severe protein-calorie malnutrition. Start percutaneous endoscopic gastrostomy (PEG) tube feedings once okayed by surgery.
[2017-08-25] MEDS: TAMSULOSIN 0.4 MG CAP PO SCH (14:30)
[2017-08-25] MEDS: MAG SULF 1GM/100ML (MAG RUN) 1 GM in APPROPRIATE DILUENT 1 EA IV SCH ×2 (14:30→16:16)
[2017-08-25] MEDS: FINASTERIDE 5 MG TAB PO SCH (14:30)
[2017-08-25] MEDS: amLODIPine 5 MG TAB PO SCH (15:25)
--- NOTE | 2017-08-25 18:30 | IPNPDOC ---
Subjective General Date/Time Seen The patient was seen on 08/25/17 at 14:27. I was informed by his nurse that he feels bloated/distended today, burping but not nauseated, not passing flatus. Subject Chief Complaint/History The patient is a 87-year-old male admitted with a reason for visit of Dysphagia; Esophageal Cancer. Current Medications Current Medications Current Medications Acetaminophen (Tylenol Suppository) 650 mg Q4HP PRN [place] MILD PAIN OR FEVER; Start 08/21/17 at 21:00; Stop 09/20/17 at 20:59 Albuterol/ Ipratropium (Duoneb (Ipr 0.5mg/Alb 2.5mg)) 3 ml Q2HP PRN NEB SOB/ WHEEZING; Start 08/21/17 at 21:15; Stop 09/20/17 at 21:14 Amlodipine Besylate (Norvasc) 5 mg DAILY PO Last administered on 08/25/17 15: 25; Start 08/25/17 at 09:00; Stop 09/24/17 at 08:59 Dextrose (Dextrose 50%) 25 ml ASDIRECTED PRN IV SEE LABEL COMMENTS; Start at 21:30; Stop 09/20/17 at 21:29 Enoxaparin Sodium (Lovenox) 30 mg DAILY SC Last administered on 08/25/17 09:07 ; Start 08/22/17 at 09:00; Stop 08/27/17 at 08:59 Fentanyl Citrate (Sublimaze) 25 mcg Q5MP PRN IV MODERATE PAIN (PS 4-7) Last administered on 08/24/17 21:07; Start 08/24/17 at 20:45; Stop 08/24/17 at 21:45 ; Status DC Fentanyl Citrate (Sublimaze) 25 mcg Q5MP PRN IV MODERATE PAIN (PS 4-7); Start 08/24/17 at 21:15; Stop 08/24/17 at 22:15; Status DC Finasteride (Proscar) 5 mg DAILY PO Last administered on 08/25/17 14:30; Start 08/25/17 at 09:00; Stop 09/24/17 at 08:59 Glucagon (Glucagon) 1 mg ASDIRECTED PRN SC SEE LABEL COMMENTS; Start 08/21/17 at 21:30; Stop 09/20/17 at 21:29 Glucose (Glucose) 16 GM ASDIRECTED PRN PO SEE LABEL COMMENTS; Start 08/21/17 at 21:30; Stop 09/20/17 at 21:29 Home Med (Med Rec Complete!) ASDIRECTED XX ; Start 08/21/17 at 18:30; Stop at 18:31; Status DC Hydralazine HCl (Apresoline) 5 mg ASDIRECTED IV Last administered on 08/24/17 21:15; Start 08/24/17 at 21:15; Stop 08/24/17 at 22:15; Status DC Insulin Human Lispro (HumaLOG INSULIN) SEE PROTOCOL TABLE Q6H SC Last administered on 08/25/17 13:15; Start 08/22/17 at 00:00; Stop 08/25/17 at 13:21 ; Status DC Lactated Ringer's 1,000 ml @ 80 mls/hr [id number] IV ; Start 08/24/17 at 20:45; Stop 08/24/17 at 21:45; Status DC Lactated Ringer's 1,000 ml @ 80 mls/hr [id number] IV ; Start 08/24/17 at 21:15; Stop 08/24/17 at 22:15; Status DC Magnesium Sulfate/ Dextrose 1 gm/IV Miscellaneous Supplies 100 ml @ 100 mls/hr Q1H IV Last administered on 08/25/17 16:16; Start 08/25/17 at 14:00; Stop 08/25/17 at 15:59; Status DC Morphine Sulfate (Morphine Sulfate Inj) 2 mg Q2HP PRN IV SEVERE PAIN (PS 8-10) Last administered on 08/25/17 05:45; Start 08/21/17 at 21:00; Stop 08/25/17 at 06:30; Status DC Morphine Sulfate (Morphine Sulfate Inj) 3 mg Q2HP PRN IV SEVERE PAIN (PS 8-10) Last administered on 08/25/17 11:47; Start 08/25/17 at 06:30; Stop 09/01/17 at 06:29 Ondansetron HCl (ZOFRAN INJection) 4 mg Q4HP PRN IV NAUSEA OR VOMITING; Start 08/24/17 at 20:45; Stop 08/24/17 at 21:45; Status DC Ondansetron HCl (ZOFRAN INJection) 4 mg Q4HP PRN IV NAUSEA OR VOMITING; Start 08/24/17 at 21:15; Stop 08/24/17 at 22:15; Status DC Ondansetron HCl (ZOFRAN INJection) 4 mg Q6HP PRN IV NAUSEA OR VOMITING Last administered on 08/24/17 22:40; Start 08/21/17 at 21:00; Stop 09/20/17 at 20: 59 Potassium Chloride 10 meq/ IV Miscellaneous Supplies 100 ml @ 100 mls/hr Q1H IV Last administered on 08/22/17 21:47; Start 08/22/17 at 12:00; Stop at 15:59; Status DC Potassium Chloride/Sodium Chloride 1,000 ml @ 60 mls/hr [id number] IV Last administered on 08/25/17 03:48; Start 08/24/17 at 12:00; Stop 09/23/17 at 11:59 Sodium Chloride 1,000 ml @ 100 mls/hr Q10H IV Last administered on 08/24/17 06:11; Start 08/21/17 at 21:00; Stop 08/24/17 at 11:50; Status DC Tamsulosin HCl (Flomax) 0.4 mg DAILY PO Last administered on 08/25/17 14:30; Start 08/25/17 at 09:00; Stop 09/24/17 at 08:59 Allergies Coded Allergies: No Known Drug Allergy (Unverified Allergy, Unknown, NONE, 01/21/13) Objective Physical Examination Examination GENERAL APPEARANCE:comfortable. SKIN: Warm and moist. HEENT: Normocephalic, atraumatic. [place] palpebral conjunctiva, anicteric sclerae. Lips and mucosa appear moist. NECK: Supple, no thyromegaly. No obvious jugular venous distention. LUNGS: Clear to auscultation bilaterally. No wheezing appreciated. HEART: No chest wall abnormalities. Regular rate and rhythm with no murmurs appreciated. ABDOMEN: Abdomen is round, soft, moderately distended, tympanitic to percussion , nontender on palpation. . EXTREMITIES: Extremities have no deformities. No edema identified. Vital Signs Vital Signs Date Time Temp Pulse Resp B/P (MAP) Pulse Ox O2 Delivery O2 Flow Rate FiO2 08/25/17 15:25 60 164/70 08/25/17 14:00 97.9 18 95 Room Air 08/24/17 23:30 1.0 I&Os I&O- Last 24 Hours up to 6 AM 08/26/17 06:00 Intake Total 280 ml Output Total 3680 ml Balance -3400 ml Laboratory Data Labs 24H Laboratory Tests 2 08/25/17 05:30: Nucleated Red Blood Cells % (auto) 0.0, Anion Gap 10, Glomerular Filtration Rate > 60.0, Blood Urea Nitrogen 10, Creatinine 0.81, Sodium Level 138, Potassium Level 4.1, Chloride Level 106, Carbon Dioxide Level 22, Calcium Level 9.3, Magnesium Level 1.7L CBC/BMP Laboratory Tests 08/25/17 05:30 Red Blood Count 3.98 L, Mean Corpuscular Volume 90.5, Mean Corpuscular Hemoglobin 32.2, Mean Corpuscular Hemoglobin Concent 35.6, Red Cell Distribution Width 15.5 H, Calcium Level 9.3 Microbiology Microbiology 08/21/17 Blood Culture - Preliminary, Resulted No Growth after 72 hours. All specime... 08/21/17 Blood Culture - Preliminary, Resulted No Growth after 72 hours. All specime... Impression POD1 gastrostomy tube placement Squamous cell proximal esophageal cancer seems postop ileus, stomach also distended hook gastrostomy to LIWS ambulate to hallways small amount of free air on xray not unexpected. No peritonitis Once abdominal distention improves, will try gastrostomy feeding. Family tells me they are considering going to [facility] for oncology consult Plan / VTE VTE Prophylaxis Ordered?: Yes (On Lovenox - held for EGD today) HECTOR MCKEON MD Aug 25, 2017 18:30
[2017-08-26] MEDS: MORPHINE 4 MG/ML 1ML SYRINGE IV PRN ×5 (02:07→16:26)
[2017-08-26 06:00] VITALS: BP 150/90
[2017-08-26 06:25] LABS: MEAN CORPUSCULAR HEMOGLOBIN 31.2 pg (27.0-33.0); MEAN CORPUSCULAR HGB CONC 34.5 g/dl (32.0-36.5); MEAN CORPUSCULAR VOLUME 90.6 fl (80.0-96.0); PLATELET COUNT, AUTOMATED 203 10^3/uL (150-450); RED CELL DISTRIBUTION WIDTH 15.8 % (11.5-14.5); WHITE BLOOD COUNT 10.3 10^3/uL (4.0-10.0)
[2017-08-26 06:50] LABS: ANION GAP 8 MEQ/L (8-16); BLOOD UREA NITROGEN 9 MG/DL (7-18); CALCIUM LEVEL 9.1 MG/DL (8.8-10.2); CARBON DIOXIDE LEVEL 23 MEQ/L (21-32); CHLORIDE LEVEL 106 MEQ/L (98-107); CREATININE FOR GFR 0.77 MG/DL (0.70-1.30); GLOMERULAR FILTRATION RATE > 60.0 (>35); GLUCOSE, FASTING 159 MG/DL (83-110); POTASSIUM SERUM 3.8 MEQ/L (3.5-5.1); SODIUM LEVEL 137 MEQ/L (136-145)
[2017-08-26] MEDS: MAGNESIUM CITRATE 300 ML BTL PO SCH (09:00)
[2017-08-26] MEDS ORDERED: MOM 30ML SUSPENSION UDC PO ONE (09:00)
[2017-08-26] MEDS: TAMSULOSIN 0.4 MG CAP PO SCH (09:07)
[2017-08-26] MEDS: FINASTERIDE 5 MG TAB PO SCH (09:07)
[2017-08-26] MEDS: amLODIPine 5 MG TAB PO SCH (09:10)
[2017-08-26] MEDS: ENOXAPARIN 30 MG/0.3 ML SYR (J1650) SC SCH (09:10)
[2017-08-26] MEDS: KCL 20MEQ IN 0.45NS 1000ML 1,000 ML IV SCH (11:45)
[2017-08-26 14:00] VITALS: BP 123/63
[2017-08-26 22:00] VITALS: BP 112/70
[2017-08-27] MEDS: KCL 20MEQ IN 0.45NS 1000ML 1,000 ML IV SCH ×2 (04:02→23:20)
[2017-08-27] MEDS: MORPHINE 4 MG/ML 1ML SYRINGE IV PRN ×2 (04:02→08:04)
[2017-08-27 06:00] VITALS: BP 163/74
[2017-08-27 06:04] LABS: MEAN CORPUSCULAR HEMOGLOBIN 31.3 pg (27.0-33.0); MEAN CORPUSCULAR HGB CONC 34.5 g/dl (32.0-36.5); MEAN CORPUSCULAR VOLUME 90.7 fl (80.0-96.0); PLATELET COUNT, AUTOMATED 201 10^3/uL (150-450); RED CELL DISTRIBUTION WIDTH 15.4 % (11.5-14.5); WHITE BLOOD COUNT 8.1 10^3/uL (4.0-10.0)
[2017-08-27 06:11] LABS: ANION GAP 7 MEQ/L (8-16); BLOOD UREA NITROGEN 9 MG/DL (7-18); CALCIUM LEVEL 9.4 MG/DL (8.8-10.2); CARBON DIOXIDE LEVEL 24 MEQ/L (21-32); CHLORIDE LEVEL 107 MEQ/L (98-107); CREATININE FOR GFR 0.82 MG/DL (0.70-1.30); GLOMERULAR FILTRATION RATE > 60.0 (>35); GLUCOSE, FASTING 221 MG/DL (83-110); POTASSIUM SERUM 3.9 MEQ/L (3.5-5.1); SODIUM LEVEL 138 MEQ/L (136-145)
--- NOTE | 2017-08-27 06:12 | REP ---
ACUTE ABDOMINAL SERIES: 08/25/2017. Clinical history: Abdominal distension, status post gastrostomy tube placement. Comparison: Chest x-ray 08/21/2017, CT abdomen and pelvis 08/01/2017. Findings: PA chest: There are sternotomy wires in the midline with a few mediastinal surgical clips. Heart size borderline. There is no definite effusion. Some minor dependent atelectatic changes in the lower lung zones. There is free air under both diaphragms and skin liam in the upper abdomen from the recent surgery. Free air is therefore not likely pathologic. Degenerative changes in the spine and shoulders. Tortuous innominate and aorta. No gross aneurysm. Flat and upright abdomen: Left upper quadrant gastrostomy tube at the level of L3 overlying the body of the stomach. Its balloon appears inflated. Some gas in the stomach and gas in the small bowel loops which are air filled but not abnormally dilated. The appearance suggests some ileus versus early partial small bowel obstruction. Skin liam overlie the abdomen extending from the level of T12-L4 in the midline. There are degenerative changes in the lower thoracic and the lumbar spine with levoconvex curve mid lumbar spine. Degenerative changes in the hips. No abnormal calcifications. Impression: 1. Evidence of a gastrostomy feeding tube in the left upper quadrant overlying the L3 level to the left of midline. On the supine view, it at least partially overlies the body of the stomach. Its position therefore is somewhat uncertain. Free air is noted likely related to the recent surgery and there are air-filled small bowel loops mildly prominent but not abnormally dilated. This likely suggest ileus versus early partial small bowel obstruction and may be followed. Signed by Ocsar Lockett MD 08/26/2017 06:28 P
--- NOTE | 2017-08-27 06:14 | IPN ---
DATE: 08/26/2017 Curt is still suffering from abdominal pain and ileus/obstruction. Dr. Fuentes saw him yesterday. He is not passing any flatus yet. His gastrostomy was placed to low intermittent suction. He has not started his gastrostomy feedings yet. I did discuss the results of his biopsy today. 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 Family wants his oncology care to be through [facility] in [place]. Patient lives in [place]. PHYSICAL EXAMINATION: Blood pressure 155/75. Vital signs stable. Lungs: Clear. Heart: Regular rhythm. Abdomen: Soft, distended. Rare bowel sounds. Diffusely tender. No peripheral edema. LABORATORY: CBC: White count is down to 10.3, hemoglobin stable. Electrolytes unremarkable. Magnesium is up to 2. IMPRESSION: 1. 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 I was going to get an oncology consult, but the family wants his oncologic care to be in [place], so we will not do that. 2. Postoperative ileus. Per surgery. 3. Hypomagnesemia. 4. Dysphagia. He is on a pureed diet, nectar-thickened liquids. 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 5. Nonsustained ventricular tachycardia. This is intermittent, asymptomatic and probably a fairly chronic situation for him. 6. Diabetes. Blood sugar is normal. We stopped fingersticks and coverage. 7. Severe protein-calorie malnutrition. Start percutaneous endoscopic gastrostomy (PEG) tube feedings once his ileus resolves.
[2017-08-27] MEDS: TAMSULOSIN 0.4 MG CAP PO SCH (08:55)
[2017-08-27] MEDS: FINASTERIDE 5 MG TAB PO SCH (08:55)
[2017-08-27] MEDS: ENOXAPARIN 30 MG/0.3 ML SYR (J1650) SC SCH (08:55)
[2017-08-27] MEDS: amLODIPine 5 MG TAB PO SCH (08:55)
[2017-08-27] MEDS: MAGNESIUM CITRATE 300 ML BTL PO SCH (08:55)
--- NOTE | 2017-08-27 09:04 | IPNPDOC ---
Subjective Date Seen The patient was seen on 08/27/17. Subjective Chief Complaint/HPI The patient is a 87-year-old male admitted with a reason for visit of Dysphagia; Esophageal Cancer. Events since last encounter Continues with generalized abdominal pain. Tolerating a pureed diet with thin liquids. no signs of aspiration. Denies Flatus. Constitutional: Denies: Chills, Fever, Night Sweats Skin: Denies: Rash, Lesions, Breakdown Pulmonary: Denies: Dyspnea, Cough Cardiovascular: Denies: Chest Pain, Palpitations, Orthopnea, Paroxysmal Noc. Dyspnea, Lt [place] Gastrointestinal: Reports: Abdominal Pain, Constipation, Denies: Nausea, Vomiting, Diarrhea Genitourinary: Denies: Dysuria, Frequency, Incontinence, Retention Objective Physical Examination General Exam: Positive: Alert, No Acute Distress (Hoarse voice. No stridor, breathing comfortably) Neck Exam: Positive: Supple, Negative: JVD, thyromegaly Chest Exam: Positive: Clear to auscultation, Normal air movement Heart Exam: Positive: Rate Normal, Regular Rhythm, Murmurs (DARLEEN at right base) Abdomen Exam: Positive: Normal bowel sounds, Soft, Negative: Tenderness Extremity Exam: Negative: Edema Assessment /Plan Problems (1) Esophageal mass Problem Text: s/p EGD 08/23 - biopsy performed Family requests referral to [facility] for Oncology once pathology returns - defer to Dr. De Anda as outpatient. (2) Dysphagia Problem Text: 08/27/17: Planned ST eval today CT with circumferential thickening of esophagus Dr. Fuentes saw patient in consultation. Unable to pass EGD past esophageal thickening yesterday to place PEG so planning open gastrotomy today [facility] consult for goal PEG tube feedings and type of feedings (3) Hypomagnesemia Status: Resolved (4) Ventricular tachycardia seen on cardiac rehabilitation program director Status: Resolved Problem Text: 08/23 - No further V-tach K runs x4 given and IV mag run. Mag still low at 1.7. another Mag run ordered. Repeat level at 10:30 prior to EGD at noon - give furtehr mag if needed then. 08/22 - Had 10 beats V-tach on tele while ambulating to BR - asymptomatic EKG 08/21 shows NSR with frequent PSVCs, Inf and anterior infarct - age undetermined. No change c/w 11/2016 EKG from [facility] mag level. K+ = 3.7 - I will give some IV K+ JFW: had NONSUSTAINED VT, prob from hypokalemia/magnesemia; both addressed. I feel he is stable for EGD (5) Aortic valve replaced Status: Chronic Response to Treatment: Stable Problem Text: No antibiotic prophylaxis needed for EGD/PEG (6) CAD (coronary artery disease) Status: Chronic Response to Treatment: Stable (7) Diabetes Status: Chronic Response to Treatment: Stable Problem Text: HbA1c was 6.5 recently on Januvia, but I would not restart this due to his age and weight loss and risk for hypoglycemia in elderly patient. Tight control not necessary at this point. D/c SSI BS controlled. (8) Asthma Status: Chronic Response to Treatment: Stable (9) Severe protein-calorie malnutrition Status: Chronic Problem Text: 08/27/17: PEG in place. Tolerating pureed diet. eval with swallow eval today. pending results, consider additional support with Glucerna via TF if indicated. CMP ordered to eval patient's albumin levels. planning PEG tube for nutritional support (10) Hypokalemia Status: Resolved Plan/VTE VTE Prophylaxis Ordered?: Yes (On Lovenox - held for EGD today) VS, I&O, 24H, Fishbone Vital Signs/I&O Vital Signs Date Time Temp Pulse Resp B/P (MAP) Pulse Ox O2 Delivery O2 Flow Rate FiO2 08/27/17 08:55 68 163/74 08/27/17 08:14 20 08/27/17 06:00 98.1 95 Room Air 08/24/17 23:30 1.0 Laboratory Data 24H LABS Laboratory Tests 2 08/27/17 05:47: Nucleated Red Blood Cells % (auto) 0.0, Anion Gap 7L, Glomerular Filtration Rate > 60.0, Blood Urea Nitrogen 9, Creatinine 0.82, Sodium Level 138, Potassium Level 3.9, Chloride Level 107, Carbon Dioxide Level 24, Calcium Level 9.4 CBC/BMP Laboratory Tests 08/27/17 05:47 Red Blood Count 3.55 L, Mean Corpuscular Volume 90.7, Mean Corpuscular Hemoglobin 31.3, Mean Corpuscular Hemoglobin Concent 34.5, Red Cell Distribution Width 15.4 H, Calcium Level 9.4 Microbiology Microbiology 08/21/17 Blood Culture - Final, Complete NO GROWTH AFTER 5 DAYS 08/21/17 Blood Culture - Final, Complete NO GROWTH AFTER 5 DAYS Nikki Segovia [facility] Aug 27, 2017 09:04
--- NOTE | 2017-08-27 09:29 | REP ---
ABDOMEN FLAT PLATE: 08/27/2017. Clinical history: Follow up ileus. Comparison: Abdominal series 08/25/2017. Findings: Left upper quadrant gastrostomy feeding tube is again seen. There is gas throughout the colon from cecum to rectosigmoid with some stool in more gas. No gross evidence of obstruction. There is less small bowel gas in the right upper quadrant than on the previous study. This suggest decreasing ileus. Some pelvic phleboliths are noted. Skin liam from the midline incision noted as before. Impression: 1. Decrease in small bowel gas suggesting lessening of the ileus. There are no dilated small bowel loops. Some more gas without increased stool burden in the colon. No obstruction. Signed by Oscar Lockett MD 08/27/2017 09:21 A
[2017-08-27 09:35] LABS: ALBUMIN 2.9 GM/DL (3.2-5.2); ALBUMIN/GLOBULIN RATIO 0.97 (1.00-1.93); ALKALINE PHOSPHATASE 40 U/L (45-117); ALT/SGPT 14 U/L (12-78); AST/SGOT 6 U/L (7-37); BILIRUBIN,TOTAL 0.4 MG/DL (0.2-1.0); TOTAL PROTEIN 5.9 GM/DL (6.4-8.2)
--- NOTE | 2017-08-27 11:59 | IPNPDOC ---
Subjective General Date/Time Seen The patient was seen on 08/27/17 at 11:52. Subject Chief Complaint/History The patient is a 87-year-old male admitted with a reason for visit of Dysphagia; Esophageal Cancer. He seems to be tolerating his soft, pured diet without any increased nausea or vomiting. His gastrostomy tube has been clamped overnight. Abdomen still remains somewhat tympanitic but less distended. No abdominal discomfort. Current Medications Current Medications Current Medications Acetaminophen (Tylenol Suppository) 650 mg Q4HP PRN [place] MILD PAIN OR FEVER; Start 08/21/17 at 21:00; Stop 09/20/17 at 20:59 Albuterol/ Ipratropium (Duoneb (Ipr 0.5mg/Alb 2.5mg)) 3 ml Q2HP PRN NEB SOB/ WHEEZING Last administered on 08/25/17 22:53; Start 08/21/17 at 21:15; Stop 09/20/17 at 21:14 Amlodipine Besylate (Norvasc) 5 mg DAILY PO Last administered on 08/27/17 08: 55; Start 08/25/17 at 09:00; Stop 09/24/17 at 08:59 Dextrose (Dextrose 50%) 25 ml ASDIRECTED PRN IV SEE LABEL COMMENTS; Start at 21:30; Stop 09/20/17 at 21:29 Enoxaparin Sodium (Lovenox) 30 mg DAILY SC Last administered on 08/27/17 08:55 ; Start 08/22/17 at 09:00; Stop 08/31/17 at 08:59 Fentanyl Citrate (Sublimaze) 25 mcg Q5MP PRN IV MODERATE PAIN (PS 4-7) Last administered on 08/24/17 21:07; Start 08/24/17 at 20:45; Stop 08/24/17 at 21:45 ; Status DC Fentanyl Citrate (Sublimaze) 25 mcg Q5MP PRN IV MODERATE PAIN (PS 4-7); Start 08/24/17 at 21:15; Stop 08/24/17 at 22:15; Status DC Finasteride (Proscar) 5 mg DAILY PO Last administered on 08/27/17 08:55; Start 08/25/17 at 09:00; Stop 09/24/17 at 08:59 Glucagon (Glucagon) 1 mg ASDIRECTED PRN SC SEE LABEL COMMENTS; Start 08/21/17 at 21:30; Stop 09/20/17 at 21:29 Glucose (Glucose) 16 GM ASDIRECTED PRN PO SEE LABEL COMMENTS; Start 08/21/17 at 21:30; Stop 09/20/17 at 21:29 Home Med (Med Rec Complete!) ASDIRECTED XX ; Start 08/21/17 at 18:30; Stop at 18:31; Status DC Hydralazine HCl (Apresoline) 5 mg ASDIRECTED IV Last administered on 08/24/17 21:15; Start 08/24/17 at 21:15; Stop 08/24/17 at 22:15; Status DC Insulin Human Lispro (HumaLOG INSULIN) SEE PROTOCOL TABLE Q6H SC Last administered on 08/25/17 13:15; Start 08/22/17 at 00:00; Stop 08/25/17 at 13:21 ; Status DC Lactated Ringer's 1,000 ml @ 80 mls/hr [id number] IV ; Start 08/24/17 at 20:45; Stop 08/24/17 at 21:45; Status DC Lactated Ringer's 1,000 ml @ 80 mls/hr [id number] IV ; Start 08/24/17 at 21:15; Stop 08/24/17 at 22:15; Status DC Magnesium Citrate (Citrate Of Magnesia) 150 ml DAILY PO Last administered on 08:55; Start 08/26/17 at 09:00; Stop 09/25/17 at 08:59 Magnesium Sulfate/ Dextrose 1 gm/IV Miscellaneous Supplies 100 ml @ 100 mls/hr Q1H IV Last administered on 08/25/17 16:16; Start 08/25/17 at 14:00; Stop 08/25/17 at 15:59; Status DC Morphine Sulfate (Morphine Sulfate Inj) 2 mg Q2HP PRN IV SEVERE PAIN (PS 8-10) Last administered on 08/25/17 05:45; Start 08/21/17 at 21:00; Stop 08/25/17 at 06:30; Status DC Morphine Sulfate (Morphine Sulfate Inj) 3 mg Q2HP PRN IV SEVERE PAIN (PS 8-10) Last administered on 08/27/17 08:04; Start 08/25/17 at 06:30; Stop 09/01/17 at 06:29 Ondansetron HCl (ZOFRAN INJection) 4 mg Q4HP PRN IV NAUSEA OR VOMITING; Start 08/24/17 at 20:45; Stop 08/24/17 at 21:45; Status DC Ondansetron HCl (ZOFRAN INJection) 4 mg Q4HP PRN IV NAUSEA OR VOMITING; Start 08/24/17 at 21:15; Stop 08/24/17 at 22:15; Status DC Ondansetron HCl (ZOFRAN INJection) 4 mg Q6HP PRN IV NAUSEA OR VOMITING Last administered on 08/24/17 22:40; Start 08/21/17 at 21:00; Stop 09/20/17 at 20: 59 Potassium Chloride 10 meq/ IV Miscellaneous Supplies 100 ml @ 100 mls/hr Q1H IV Last administered on 08/22/17 21:47; Start 08/22/17 at 12:00; Stop at 15:59; Status DC Potassium Chloride/Sodium Chloride 1,000 ml @ 60 mls/hr [id number] IV Last administered on 08/27/17 04:02; Start 08/24/17 at 12:00; Stop 09/23/17 at 11:59 Sodium Chloride 1,000 ml @ 100 mls/hr Q10H IV Last administered on 08/24/17 06:11; Start 08/21/17 at 21:00; Stop 08/24/17 at 11:50; Status DC Tamsulosin HCl (Flomax) 0.4 mg DAILY PO Last administered on 08/27/17 08:55; Start 08/25/17 at 09:00; Stop 09/24/17 at 08:59 Allergies Coded Allergies: No Known Drug Allergy (Unverified Allergy, Unknown, NONE, 01/21/13) Objective Physical Examination Examination GENERAL APPEARANCE: Comfortable. SKIN: Warm and moist. HEENT: Normocephalic, atraumatic. [place] palpebral conjunctiva, anicteric sclerae. Lips and mucosa appear moist. Force voice NECK: Supple, no thyromegaly. No obvious jugular venous distention. LUNGS: Clear to auscultation bilaterally. No wheezing appreciated. HEART: No chest wall abnormalities. Regular rate and rhythm with no murmurs appreciated. ABDOMEN: Abdomen is round, soft, tympanitic, less distended. Mild tender at the midline supraumbilical incision. Dressing is intact. Gastrostomy intact without any drainage around it.. EXTREMITIES: Extremities have no deformities. No edema identified. Vital Signs Vital Signs Date Time Temp Pulse Resp B/P (MAP) Pulse Ox O2 Delivery O2 Flow Rate FiO2 08/27/17 08:55 68 163/74 08/27/17 08:14 20 08/27/17 06:00 98.1 95 Room Air 08/24/17 23:30 1.0 Laboratory Data Labs 24H Laboratory Tests 2 08/27/17 05:47: Nucleated Red Blood Cells % (auto) 0.0, Anion Gap 7L, Glomerular Filtration Rate > 60.0, Blood Urea Nitrogen 9, Creatinine 0.82, Sodium Level 138, Potassium Level 3.9, Chloride Level 107, Carbon Dioxide Level 24, Calcium Level 9.4, Aspartate Amino Transf (AST/SGOT) 6L, Alanine Aminotransferase (ALT/SGPT) 14, Alkaline Phosphatase 40L, Total Bilirubin 0.4, Total Protein 5.9L, Albumin 2.9L, Albumin/Globulin Ratio 0.97L CBC/BMP Laboratory Tests 08/27/17 05:47 Red Blood Count 3.55 L, Mean Corpuscular Volume 90.7, Mean Corpuscular Hemoglobin 31.3, Mean Corpuscular Hemoglobin Concent 34.5, Red Cell Distribution Width 15.4 H, Calcium Level 9.4, Aspartate Amino Transf (AST/SGOT) 6 L, Alanine Aminotransferase (ALT/SGPT) 14, Alkaline Phosphatase 40 L, Total Bilirubin 0.4, Total Protein 5.9 L, Albumin 2.9 L Microbiology Microbiology 08/21/17 Blood Culture - Final, Complete NO GROWTH AFTER 5 DAYS 08/21/17 Blood Culture - Final, Complete NO GROWTH AFTER 5 DAYS Impression Esophageal cancer, squamous cell carcinoma Status post gastrostomy tube placement Okay to start using gastrostomy tube for feeding Recommend place patient on bowel regimen Advised patient to continue ambulation Removal of liam 2 weeks postop I will not be available for the following week, if there are any problems with the gastrostomy tube please call the surgeon financial institution manager. Plan / VTE VTE Prophylaxis Ordered?: Yes (On Lovenox - held for EGD today) HECTOR MCKEON MD Aug 27, 2017 11:59
[2017-08-27 14:00] VITALS: BP 126/67
[2017-08-27 22:00] VITALS: BP 130/63
[2017-08-28] MEDS: MORPHINE 4 MG/ML 1ML SYRINGE IV PRN ×2 (01:37→22:13)
[2017-08-28 06:00] VITALS: BP 152/74
[2017-08-28 07:03] LABS: MEAN CORPUSCULAR HEMOGLOBIN 31.4 pg (27.0-33.0); MEAN CORPUSCULAR HGB CONC 34.2 g/dl (32.0-36.5); MEAN CORPUSCULAR VOLUME 91.8 fl (80.0-96.0); PLATELET COUNT, AUTOMATED 224 10^3/uL (150-450); RED CELL DISTRIBUTION WIDTH 15.6 % (11.5-14.5); WHITE BLOOD COUNT 8.7 10^3/uL (4.0-10.0)
[2017-08-28 07:15] LABS: ANION GAP 7 MEQ/L (8-16); BLOOD UREA NITROGEN 10 MG/DL (7-18); CARBON DIOXIDE LEVEL 24 MEQ/L (21-32); CHLORIDE LEVEL 109 MEQ/L (98-107); CREATININE FOR GFR 0.95 MG/DL (0.70-1.30); GLOMERULAR FILTRATION RATE > 60.0 (>35); GLUCOSE, FASTING 222 MG/DL (83-110); POTASSIUM SERUM 3.9 MEQ/L (3.5-5.1); SODIUM LEVEL 140 MEQ/L (136-145)
[2017-08-28] MEDS: ENOXAPARIN 30 MG/0.3 ML SYR (J1650) SC SCH (08:54)
[2017-08-28] MEDS: TAMSULOSIN 0.4 MG CAP PO SCH (08:55)
[2017-08-28] MEDS: MAGNESIUM CITRATE 300 ML BTL PO SCH (08:55)
[2017-08-28] MEDS: amLODIPine 5 MG TAB PO SCH (08:55)
[2017-08-28] MEDS: FINASTERIDE 5 MG TAB PO SCH (08:55)
--- NOTE | 2017-08-28 09:56 | IPNPDOC ---
Subjective Date Seen The patient was seen on 08/28/17. Subjective Chief Complaint/HPI The patient is a 87-year-old male admitted with a reason for visit of Dysphagia; Esophageal Cancer. Events since last encounter + flatus. Denies c/o. Participating in PT, ambulating. Constitutional: Denies: Chills, Fever, Night Sweats Skin: Denies: Rash, Lesions, Breakdown Pulmonary: Denies: Dyspnea, Cough Cardiovascular: Denies: Chest Pain, Palpitations, Orthopnea, Paroxysmal Noc. Dyspnea, Lt Headedness Gastrointestinal: Reports: Abdominal Pain, Denies: Nausea, Vomiting, Diarrhea, Constipation Objective Physical Examination General Exam: Positive: Alert, No Acute Distress (Hoarse voice. No stridor, breathing comfortably) Neck Exam: Positive: Supple, Negative: JVD, thyromegaly Chest Exam: Positive: Clear to auscultation, Normal air movement Heart Exam: Positive: Rate Normal, Regular Rhythm, Murmurs (DARLEEN at right base) Abdomen Exam: Positive: Normal bowel sounds, Soft, Negative: Tenderness Extremity Exam: Negative: Edema Assessment /Plan Problems (1) Esophageal mass Problem Text: s/p EGD 08/23 - biopsy performed Family requests referral to [facility] for Oncology once pathology returns - defer to Dr. De Anda as outpatient. (2) Dysphagia Problem Text: 08/28/17: pureed diet with nectar thick liquids. Add on Glucerna tid to boost protein stores 08/27/17: Planned ST eval today CT with circumferential thickening of esophagus Dr. Fuentes saw patient in consultation. Unable to pass EGD past esophageal thickening yesterday to place PEG so planning open gastrotomy today Get Senior Consultant consult for goal PEG tube feedings and type of feedings (3) Hypomagnesemia Status: Resolved (4) Ventricular tachycardia seen on environmental monitoring technician Status: Resolved Problem Text: 08/23 - No further V-tach K runs x4 given and IV mag run. Mag still low at 1.7. another Mag run ordered. Repeat level at 10:30 prior to EGD at noon - give furtehr mag if needed then. 08/22 - Had 10 beats V-tach on tele while ambulating to - asymptomatic EKG 08/21 shows NSR with frequent PSVCs, Inf and anterior infarct - age undetermined. No change c/w 11/2016 EKG from [facility] Check mag level. K+ = 3.7 - I will give some IV K+ JFW: had NONSUSTAINED VT, prob from hypokalemia/magnesemia; both addressed. I feel he is stable for EGD (5) Aortic valve replaced Status: Chronic Response to Treatment: Stable Problem Text: No antibiotic prophylaxis needed for EGD/PEG (6) CAD (coronary artery disease) Status: Chronic Response to Treatment: Stable (7) Diabetes Status: Chronic Response to Treatment: Stable Problem Text: HbA1c was 6.5 recently on Januvia, but I would not restart this due to his age and weight loss and risk for hypoglycemia in elderly patient. Tight control not necessary at this point. D/c SSI BS controlled. (8) Asthma Status: Chronic Response to Treatment: Stable (9) Severe protein-calorie malnutrition Status: Chronic Problem Text: 08/27/17: PEG in place. Tolerating pureed diet. eval with swallow eval today. pending results, consider additional support with Glucerna via TF if indicated. CMP ordered to eval patient's albumin levels. planning PEG tube for nutritional support (10) Hypokalemia Status: Resolved Plan/VTE VTE Prophylaxis Ordered?: Yes (On Lovenox - held for EGD today) VS, I&O, 24H, Fishbone Vital Signs/I&O Vital Signs Date Time Temp Pulse Resp B/P (MAP) Pulse Ox O2 Delivery O2 Flow Rate FiO2 08/28/17 08:55 65 152/74 08/28/17 06:00 97.5 18 93 Room Air 97.5 08/24/17 23:30 1.0 Laboratory Data 24H LABS Laboratory Tests 2 08/28/17 06:46: Nucleated Red Blood Cells % (auto) 0.0, Anion Gap 7L, Glomerular Filtration Rate > 60.0, Blood Urea Nitrogen 10, Creatinine 0.95, Sodium Level 140, Potassium Level 3.9, Chloride Level 109H, Carbon Dioxide Level 24, Calcium Level 10.0 CBC/BMP Laboratory Tests 08/28/17 06:46 Red Blood Count 3.76 L, Mean Corpuscular Volume 91.8, Mean Corpuscular Hemoglobin 31.4, Mean Corpuscular Hemoglobin Concent 34.2, Red Cell Distribution Width 15.6 H, Calcium Level 10.0 Microbiology Microbiology 08/21/17 Blood Culture - Final, Complete NO GROWTH AFTER 5 DAYS 08/21/17 Blood Culture - Final, Complete NO GROWTH AFTER 5 DAYS Nikki Segovia INBOUND CALL CENTER AGENT Aug 28, 2017 09:56
[2017-08-28] MEDS: DOCUSATE SODIUM 100 MG CAP PO SCH ×2 (10:34→21:05)
[2017-08-28] MEDS: MIRALAX *UNIT DOSE* 17GM PACKET PO SCH (10:34)
[2017-08-28 12:45] VITALS: BP 120/70
[2017-08-28 14:00] VITALS: BP 148/68
[2017-08-28] MEDS: NORCO, ANEXSIA 5/325MG TABLET (HYDROcodone/ACETAMINOPHEN) PO PRN (18:56)
[2017-08-28] MEDS: SENNA 8.6 MG TAB (SENOKOT) PO SCH (21:05)
[2017-08-28] MEDS: KCL 20MEQ IN 0.45NS 1000ML 1,000 ML IV SCH (21:52)
[2017-08-28 22:00] VITALS: BP 178/86
[2017-08-28 22:15] VITALS: BP 142/76
[2017-08-29 06:00] VITALS: BP 174/79
[2017-08-29 06:23] VITALS: BP 144/62
[2017-08-29 06:36] LABS: BASO % 0.4 % (0.0-1.0); EOS # 0.3 10^3/uL (0.0-0.50); EOS % 2.7 % (0.0-3.0); IMMATURE GRANULOCYTE % 0.7 % (0-0); LYMPH # 1.5 10^3/uL (1.5-4.5); LYMPH % 15.7 % (24.0-44.0); MEAN CORPUSCULAR HEMOGLOBIN 31.6 pg (27.0-33.0); MEAN CORPUSCULAR HGB CONC 34.7 g/dl (32.0-36.5); MEAN CORPUSCULAR VOLUME 91.1 fl (80.0-96.0); MONO # 1.1 10^3/uL (0.0-0.8); MONO % 11.3 % (0.0-5.0); NEUTROPHILS # 6.6 10^3/uL (1.8-7.7); NEUTROPHILS % 69.2 % (36.0-66.0); PLATELET COUNT, AUTOMATED 263 10^3/uL (150-450); RED CELL DISTRIBUTION WIDTH 15.9 % (11.5-14.5); WHITE BLOOD COUNT 9.6 10^3/uL (4.0-10.0)
[2017-08-29 06:52] LABS: ALBUMIN 3.2 GM/DL (3.2-5.2); ALBUMIN/GLOBULIN RATIO 0.94 (1.00-1.93); ALKALINE PHOSPHATASE 39 U/L (45-117); ALT/SGPT 17 U/L (12-78); ANION GAP 7 MEQ/L (8-16); AST/SGOT 6 U/L (7-37); BILIRUBIN,TOTAL 0.4 MG/DL (0.2-1.0); BLOOD UREA NITROGEN 9 MG/DL (7-18); CARBON DIOXIDE LEVEL 25 MEQ/L (21-32); CHLORIDE LEVEL 109 MEQ/L (98-107); CREATININE FOR GFR 0.89 MG/DL (0.70-1.30); GLOMERULAR FILTRATION RATE > 60.0 (>35); GLUCOSE, FASTING 218 MG/DL (83-110); POTASSIUM SERUM 3.9 MEQ/L (3.5-5.1); SODIUM LEVEL 141 MEQ/L (136-145); TOTAL PROTEIN 6.6 GM/DL (6.4-8.2)
[2017-08-29 10:00] VITALS: BP 120/62
[2017-08-29] MEDS: FINASTERIDE 5 MG TAB PO SCH (10:12)
[2017-08-29] MEDS: MIRALAX *UNIT DOSE* 17GM PACKET PO SCH (10:12)
[2017-08-29] MEDS: TAMSULOSIN 0.4 MG CAP PO SCH (10:12)
[2017-08-29] MEDS: amLODIPine 5 MG TAB PO SCH (10:13)
[2017-08-29] MEDS: DOCUSATE SODIUM 100 MG CAP PO SCH ×2 (10:14→20:11)
--- NOTE | 2017-08-29 10:51 | IPNPDOC ---
Subjective Date Seen The patient was seen on 08/29/17. Subjective Chief Complaint/HPI The patient is a 87-year-old male admitted with a reason for visit of Dysphagia; Esophageal Cancer. Events since last encounter Passed PT. Taking in 25% of meals. Not taking nectar thick fluids well. Constitutional: Denies: Chills, Fever, Night Sweats Cardiovascular: Denies: Chest Pain, Palpitations, Orthopnea, Paroxysmal Noc. Dyspnea, Lt Headedness Gastrointestinal: Denies: Nausea, Vomiting, Abdominal Pain, Diarrhea, Constipation Psych: Reports: Mood Normal, Denies: Depression, Memory Issues Objective Physical Examination General Exam: Positive: Alert, No Acute Distress (Hoarse voice. No stridor, breathing comfortably) Neck Exam: Positive: Supple, Negative: JVD, thyromegaly Chest Exam: Positive: Clear to auscultation, Normal air movement Heart Exam: Positive: Rate Normal, Regular Rhythm, Murmurs (DARLEEN at right base) Abdomen Exam: Positive: Normal bowel sounds, Soft, Negative: Tenderness Extremity Exam: Negative: Edema Assessment /Plan Problems (1) Esophageal mass Problem Text: 08/28/17: poor po intake. Will start tube feed with 100 ml free water tid today. Continue pureed diet with nectar thick liquids. Will teach family. Plan on DC home in 1-2 days. s/p EGD 08/23 - biopsy performed Family requests referral to [facility] for Oncology once pathology returns - defer to Dr. De Anda as outpatient. (2) Dysphagia Problem Text: 08/28/17: pureed diet with nectar thick liquids. Add on Glucerna tid to boost protein stores 08/27/17: Planned ST eval today CT with circumferential thickening of esophagus Dr. Fuentes saw patient in consultation. Unable to pass EGD past esophageal thickening yesterday to place PEG so planning open gastrotomy today Get Sales Ambassador consult for goal PEG tube feedings and type of feedings (3) Hypomagnesemia Status: Resolved (4) Ventricular tachycardia seen on nurse monitoring Status: Resolved Problem Text: 08/23 - No further V-tach K runs x4 given and IV mag run. Mag still low at 1.7. another Mag run ordered. Repeat level at 10:30 prior to EGD at noon - give furtehr mag if needed then. 08/22 - Had 10 beats V-tach on tele while ambulating to - asymptomatic EKG 08/21 shows NSR with frequent PSVCs, Inf and anterior infarct - age undetermined. No change c/w 11/2016 EKG from [facility] Check mag level. K+ = 3.7 - I will give some IV K+ JFW: had NONSUSTAINED VT, prob from hypokalemia/magnesemia; both addressed. I feel he is stable for EGD (5) Aortic valve replaced Status: Chronic Response to Treatment: Stable Problem Text: No antibiotic prophylaxis needed for EGD/PEG (6) CAD (coronary artery disease) Status: Chronic Response to Treatment: Stable (7) Diabetes Status: Chronic Response to Treatment: Stable Problem Text: HbA1c was 6.5 recently on Januvia, but I would not restart this due to his age and weight loss and risk for hypoglycemia in elderly patient. Tight control not necessary at this point. D/c SSI BS controlled. (8) Asthma Status: Chronic Response to Treatment: Stable (9) Severe protein-calorie malnutrition Status: Chronic Problem Text: 08/27/17: PEG in place. Tolerating pureed diet. eval with swallow eval today. pending results, consider additional support with Glucerna via TF if indicated. CMP ordered to eval patient's albumin levels. planning PEG tube for nutritional support (10) Hypokalemia Status: Resolved Plan/VTE VTE Prophylaxis Ordered?: Yes (On Lovenox - held for EGD today) VS, I&O, 24H, Fishbone Vital Signs/I&O Vital Signs Date Time Temp Pulse Resp B/P (MAP) Pulse Ox O2 Delivery O2 Flow Rate FiO2 08/29/17 10:13 82 120/62 08/29/17 06:00 97.7 18 96 Room Air 08/24/17 23:30 1.0 I&O- Last 24 Hours up to 6 AM 08/30/17 06:00 Output Total 122 ml Balance -122 ml Laboratory Data 24H LABS Laboratory Tests 2 08/29/17 06:00: Immature Granulocyte % (Auto) 0.7H, White Blood Count 9.6, Red Blood Count 3.80L , Hemoglobin 12.0L, Hematocrit 34.6L, Mean Corpuscular Volume 91.1, Mean Corpuscular Hemoglobin 31.6, Mean Corpuscular Hemoglobin Concent 34.7, Red Cell Distribution Width 15.9H, Platelet Count 263, Neutrophils (%) (Auto) 69.2H, Lymphocytes (%) (Auto) 15.7L, Monocytes (%) (Auto) 11.3H, Eosinophils (%) (Auto ) 2.7, Basophils (%) (Auto) 0.4, Neutrophils # (Auto) 6.6, Lymphocytes # (Auto) 1.5, Monocytes # (Auto) 1.1H, Eosinophils # (Auto) 0.3, Basophils # (Auto) 0.0, Immature Granulocyte # (Auto) 0.1H, Nucleated Red Blood Cells % (auto) 0.0, Anion Gap 7L, Glomerular Filtration Rate > 60.0, Blood Urea Nitrogen 9, Creatinine 0.89, Sodium Level 141, Potassium Level 3.9, Chloride Level 109H, Carbon Dioxide Level 25, Calcium Level 10.0, Aspartate Amino Transf (AST/SGOT) 6L, Alanine Aminotransferase (ALT/SGPT) 17, Alkaline Phosphatase 39L, Total Bilirubin 0.4, Total Protein 6.6, Albumin 3.2, Albumin/Globulin Ratio 0.94L CBC/BMP Laboratory Tests 08/29/17 06:00 Red Blood Count 3.80 L, Mean Corpuscular Volume 91.1, Mean Corpuscular Hemoglobin 31.6, Mean Corpuscular Hemoglobin Concent 34.7, Red Cell Distribution Width 15.9 H, Neutrophils (%) (Auto) 69.2 H, Lymphocytes (%) (Auto ) 15.7 L, Monocytes (%) (Auto) 11.3 H, Eosinophils (%) (Auto) 2.7, Basophils (% ) (Auto) 0.4, Neutrophils # (Auto) 6.6, Lymphocytes # (Auto) 1.5, Monocytes # ( Auto) 1.1 H, Eosinophils # (Auto) 0.3, Basophils # (Auto) 0.0, Calcium Level 10.0, Aspartate Amino Transf (AST/SGOT) 6 L, Alanine Aminotransferase (ALT/SGPT ) 17, Alkaline Phosphatase 39 L, Total Bilirubin 0.4, Total Protein 6.6, Albumin 3.2 Microbiology Microbiology 08/21/17 Blood Culture - Final, Complete NO GROWTH AFTER 5 DAYS 08/21/17 Blood Culture - Final, Complete NO GROWTH AFTER 5 DAYS Nikki Segovia SOCIOCULTURAL ANTHROPOLOGY PROFESSOR Aug 29, 2017 10:51
[2017-08-29] MEDS: NORCO, ANEXSIA 5/325MG TABLET (HYDROcodone/ACETAMINOPHEN) PO PRN (12:42)
[2017-08-29] MEDS: ENOXAPARIN 30 MG/0.3 ML SYR (J1650) SC SCH (12:43)
[2017-08-29] MEDS: MAGNESIUM CITRATE 300 ML BTL PO SCH (12:47)
[2017-08-29 13:33] VITALS: BP 120/62
[2017-08-29 14:00] VITALS: BP 157/80
[2017-08-29] MEDS: SENNA 8.6 MG TAB (SENOKOT) PO SCH (20:11)
[2017-08-29 22:00] VITALS: BP 145/76
[2017-08-30 06:00] VITALS: BP 143/79
[2017-08-30 07:22] LABS: BASO % 0.4 % (0.0-1.0); EOS # 0.2 10^3/uL (0.0-0.50); EOS % 2.2 % (0.0-3.0); IMMATURE GRANULOCYTE % 1.1 % (0-0); LYMPH # 1.3 10^3/uL (1.5-4.5); LYMPH % 11.6 % (24.0-44.0); MEAN CORPUSCULAR HEMOGLOBIN 31.5 pg (27.0-33.0); MEAN CORPUSCULAR HGB CONC 34.6 g/dl (32.0-36.5); MONO # 1.1 10^3/uL (0.0-0.8); NEUTROPHILS # 8.3 10^3/uL (1.8-7.7); NEUTROPHILS % 74.7 % (36.0-66.0); PLATELET COUNT, AUTOMATED 275 10^3/uL (150-450); RED CELL DISTRIBUTION WIDTH 15.9 % (11.5-14.5)
[2017-08-30 07:49] LABS: ALBUMIN 3.2 GM/DL (3.2-5.2); ALBUMIN/GLOBULIN RATIO 0.84 (1.00-1.93); ALKALINE PHOSPHATASE 48 U/L (45-117); ALT/SGPT 19 U/L (12-78); ANION GAP 6 MEQ/L (8-16); AST/SGOT 9 U/L (7-37); BILIRUBIN,TOTAL 0.5 MG/DL (0.2-1.0); BLOOD UREA NITROGEN 14 MG/DL (7-18); CALCIUM LEVEL 10.5 MG/DL (8.8-10.2); CARBON DIOXIDE LEVEL 27 MEQ/L (21-32); CHLORIDE LEVEL 107 MEQ/L (98-107); CREATININE FOR GFR 0.95 MG/DL (0.70-1.30); GLOMERULAR FILTRATION RATE > 60.0 (>35); GLUCOSE, FASTING 258 MG/DL (83-110); SODIUM LEVEL 140 MEQ/L (136-145)
[2017-08-30 08:35] VITALS: BP 146/80
[2017-08-30 09:30] VITALS: BP 146/80
[2017-08-30] MEDS: TAMSULOSIN 0.4 MG CAP PO SCH (09:31)
[2017-08-30] MEDS: FINASTERIDE 5 MG TAB PO SCH (09:31)
[2017-08-30] MEDS: DOCUSATE SODIUM 100 MG CAP PO SCH (09:31)
[2017-08-30 09:33] VITALS: BP 146/80
[2017-08-30] MEDS: amLODIPine 5 MG TAB PO SCH (09:33)
[2017-08-30] MEDS: MIRALAX *UNIT DOSE* 17GM PACKET PO SCH (09:33)
[2017-08-30] MEDS: MAGNESIUM CITRATE 300 ML BTL PO SCH (09:34)
[2017-08-30] MEDS: ENOXAPARIN 30 MG/0.3 ML SYR (J1650) SC SCH (10:12)
[2017-08-30] MEDS ORDERED: SENN18TA PO (11:33)
[2017-08-30] MEDS ORDERED: NORCOTAB PO (11:33)
[2017-08-30] MEDS ORDERED: COLA100C5 PO (11:33)
--- NOTE | 2017-08-31 05:58 | DSES ---
DATE OF ADMISSION: 08/21/2017 DATE OF DISCHARGE: 08/30/2017 ATTENDING PHYSICIAN: Dr. Sandra Fletcher. PRIMARY CARE PHYSICIAN: Dr. Harpreet De Anda HISTORY OF PRESENT ILLNESS: This is an 87-year-old gentleman who presented to [facility] Emergency Department with complaints of hoarseness, dysphagia, and a weight loss of 25 pounds over the last two months. The patient also had had some vague right-sided chest discomfort, was seen by ears, nose and throat in [place] and was advised that he had partial vocal cord paralysis. Family was concerned as the patient did appear to have overall deteriorating generalized weakness, complaining of chest discomfort and pain. CT scan obtained on 08/21/2017, showed mural thickening affecting the upper thoracic esophagus suggesting esophageal neoplasm with three adjacent normal-sized superior mediastinal paraesophageal lymph nodes. The patient was subsequently admitted to the family medicine service. HOSPITAL COURSE: Dr. Nico Fuentes was consulted due to patient's esophageal mass. The patient was taken to the operating room (OR) for an upper gastrointestinal (GI) endoscopy with biopsy of the area on the mass. On 08/22, the patient's procedure was cancelled secondary to a significant run of ventricular tachycardia with hypokalemia and hypomagnesemia. This was subsequently corrected. On 08/24, the patient is status post upper endoscopy with gastrostomy tube placement. The patient has continued to progress fairly well. He is status post swallow evaluation and they recommend the patient may trial puree foods with nectar-thick liquids, which he has been able to tolerate. However, the patient has only been tolerating 25% of his diet. On 08/28, the patient started with Glucerna tube feedings in between meals as he has difficulty tolerating the consistency of thickened Glucerna by mouth. The patient has continued to improve and tolerates his extra nutrition via gastrostomy (G) tube. 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 The patient has opted to seek oncology treatment at [facility]. Consultation included Dr. Nico Fuentes, general surgery. Nutrition consult was obtained, and the Glucerna 1.2 was recommended by the wildlife policy professional. Imaging: The patient is status post chest x-ray and multiple abdominal films postoperatively. CT angiogram was completed on 08/21, with no evidence of pulmonary embolism or acute infiltrates at that time. The patient has improved well as far as his weakness. He participated with physical therapy routinely and they have deemed he is safe to return to home. ASSESSMENT/DISCHARGE DIAGNOSES: 1. 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 2. Severe protein calorie malnutrition secondary to weight loss with new-found esophageal mass. 3. Generalized weakness. 4. Chest pain. SECONDARY DIAGNOSES: 1. Diabetes. 2. Coronary artery disease. 3. Aortic valve replaced. 4. Asthma. 5. Prostatic hypertrophy. PLAN: The patient will be discharged to home in the care of family. They have been instructed on his tube feed. He will go home on a puree diet with nectar-thick liquids, along with Glucerna 1.2 three times a day in between meals. Activity is as tolerated. He will followup with his primary care physician (PCP) Dr. Harpreet De Anda, on 09/04. Medications are as follows: - acetaminophen with hydrocodone two tablets every four hours as needed for severe pain - Colace 100 mg by mouth twice a day - senna two tablets by mouth at bedtime - amlodipine 5 mg by mouth daily - vitamin D 50,000 international units by mouth weekly - fenofibrate 134 mg by mouth daily - finasteride 5 mg by mouth every evening - metformin 1000 mg by mouth twice a day - pantoprazole sodium 40 mg by mouth twice a day - pravastatin 40 mg by mouth every evening - Advair Diskus 500/50 mcg one puff twice a day - tamsulosin 0.4 mg by mouth every evening Medications that were held include: - aspirin 325 mg by mouth daily - furosemide 20 mg daily - Januvia 100 mg by mouth every evening The patient is discharged in stable and satisfactory condition with no further questions at time of discharge.
--- NOTE | 2017-09-19 10:13 | ROOPDOC ---
[facility] Report Of Operation Report of Operation DATE OF PROCEDURE: 08/24/17 PREPROCEDURE DIAGNOSES: Esophageal carcinoma, obstructing POSTPROCEDURE DIAGNOSES: Same PROCEDURE: Open Joaquim gastrostomy tube placement. SURGEON: Hector Fuentes MD TOOL SUPERVISOR: none ANESTHESIA: Gen. anesthesia. ESTIMATED BLOOD LOSS: Approximately 20 mL. COMPLICATIONS: None. REMARKS: 87-year-old gentleman who was admitted for obstructing upper esophageal cancer with involvement of the recurrent laryngeal nerve with hoarseness of his voice. The area was biopsied and this shows squamous cell carcinoma. I was unable to pass the scope through. He is here today to place a feeding gastrostomy tube. DESCRIPTION OF PROCEDURE: Patient was given a dose of Unasyn 3 g IV preoperatively for wound prophylaxis. He was brought to the operating room, laid supine on the table. Compression boots placed on both lower extremities for DVT prophylaxis. General endotracheal anesthesia started. His abdomen was widely prepped and draped in usual sterile fashion. Surgical timeout was performed prior to start of the surgery. A vertical upper midline incision was created roughly about 56 cm above the umbilicus deepened through the subcutaneous tissue. The anterior fascia was opened under direct vision. The rectus muscles divided at the linea alba. The posterior fascia opened up with Metzenbaum scissors under direct vision. On entry into the abdomen exploration was performed to determine if there any evidence for peritoneal carcinomatosis, liver involvement, omental caking or enlarged suspicious nodules. There was some mild, minimal serous ascites. No evidence for distant metastasis was found. The mid body of the stomach was delivered into view. A 3-0 silk pursestring suture was placed at the distal body. A gastrotomy was performed in the middle of the pursestring suture and a 20 Mong[place]ian gastrostomy tube was passed through the right lateral sidewall and into our gastrotomy. The balloon was inflated initially at 5 mL's. The pursestring suture was tied off and a second pursestring suture was placed. The gastrotomy site was then tacked to the underside of the right lateral abdominal wall the tube passed through the abdomen. 2 more tacking sutures of 3-0 silk was placed at the opposite corners. I then increasing inflation of the gastrostomy tube to 10 mL's. The tube was tested and noted to be working without any leakage. The rest of the abdominal contents were then replaced back in its anatomic position together with the thin omentum to cover the bowels. The incision was then closed in layers with 1 looped PDS in a running fashion. Subcutaneous tissue was irrigated. Skin incision was closed with liam. The external bumper of the gastrostomy tube was sutured into the abdominal wall with 2-0 nylon. Dry gauze dressing was then placed on the skin incision and at the gastrostomy exit site. Patient was sent promptly awakened extubated and brought to recovery room stable HECTOR FUENTES MD Sep 19, 2017 10:13
--- NOTE | 2017-09-28 08:42 | ROOPDOC ---
[facility] Report Of Operation Report of Operation DATE OF PROCEDURE: 09/28/17 PREPROCEDURE DIAGNOSES: Upper esophageal mass suspicious for malignancy, dysphagia. 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 PROCEDURE: Upper GI endoscopy to upper esophagus with biopsy. SURGEON: Nico Fuentes MD UPTWISTER TENDER: ANESTHESIA:monitored anesthesia care. ESTIMATED BLOOD LOSS: Approximately 5 mL. COMPLICATIONS: None REMARKS: Circumferential mass in the upper esophagus, with near-complete obstruction. I was not able to get through the mass. Biopsies taken. PROCEDURE NOTE: 87-year-old male complaining of dysphagia, hoarseness of his voice, associated weight loss suspicious for malignancy. Masses located in the upper esophagus on CT of the neck and chest.. DESCRIPTION OF PROCEDURE: Patient was brought to the operating room, placed in slight lateral decubitus position. Monitoring leads placed. A bite block was placed. Oxygen via facemask given.Timeouts were performed using both preinduction and pre-incision safety checklist to verify correct patient, procedure site and additional clinical information prior to beginning the procedure Once adequate anesthesia achieved, the Olympus video endoscope was inserted through the mouth and the upper esophageal opening intubated under direct vision. The mass was immediately encountered about 3-4 cm after getting through to the upper esophageal sphincter. There is circumferential fungating intraluminal mass with only about 7-8 mm opening left in the area. The mass was not able to be traversed. Multiple biopsies were taken and sent for pathology. Procedure was then terminated by removal of the endoscope. Patient was sent promptly a week and brought to recovery room stable. Results of the procedure was discussed with the patient as well as with family members. We will plan for operative gastrostomy tube placement on the latter date. NICO FUENTES MD Sep 28, 2017 08:42
[2017-10-05] MEDS ORDERED: INSUDET (23:37)
[2017-10-05] MEDS ORDERED: INSUH10VL (23:37)
== END 2017-08-30 14:46 | disposition home health service (06) | DRG 326 ==
LOC: M ED 17:10 → M ED INP 20:57 → M MSPAV 23:42
PROVIDERS: ADMIT Hospitalist; ATTEND Family Medicine
PROC: 0DB18ZX Excision of Upper Esophagus, Via Natural or Artificial Opening Endoscopic, Diagnostic (ICD-10-PCS; principal; 2017-08-22)
PROC: 0DH60UZ Insertion of Feeding Device into Stomach, Open Approach (ICD-10-PCS; 2017-08-24)
DX: C15.4 Malignant neoplasm of middle third of esophagus (principal); E43 Unspecified severe protein-calorie malnutrition; E87.2 Acidosis; R64 Cachexia; I47.2 Ventricular tachycardia; K91.89 Other postprocedural complications and disorders of digestive system; I10 Essential (primary) hypertension; E11.9 Type 2 diabetes mellitus without complications; J38.01 Paralysis of vocal cords and larynx, unilateral; I25.10 Atherosclerotic heart disease of native coronary artery without angina pectoris; E83.42 Hypomagnesemia; R53.1 Weakness; E87.6 Hypokalemia; J45.909 Unspecified asthma, uncomplicated; R07.9 Chest pain, unspecified; R13.10 Dysphagia, unspecified; Z95.2 Presence of prosthetic heart valve; Z79.82 Long term (current) use of aspirin; Z79.84 Long term (current) use of oral hypoglycemic drugs; Z79.899 Other long term (current) drug therapy

== ENCOUNTER 2017-10-05 23:21 | Emergency (ER) | payer MEDICARE, BC, OTHER ==
[~2017-10-05] VITALS: Ht 167.6 cm; Wt 55.5 kg
[~2017-10-05 23:21] MED LIST changes: +AMLO5TAB2 PEG; -AMLO5TAB2 PO; +FINA5TAB2 PEG; -FINA5TAB2 PO; +FLOM5CAP PEG; -FLOM5CAP PO; +PRAV40TA2 PEG; -PRAV40TA2 PO
[2017-10-05] MEDS ORDERED: INSUDET SC (23:37)
[2017-10-05] MEDS ORDERED: INSUH10VL SC (23:37)
[2017-10-05] MEDS ORDERED: LOVE1INJ2 SC (23:37)
[2017-10-05 23:58] LABS: BASO % 0.3 % (0.0-1.0); EOS # 0.1 10^3/uL (0.0-0.50); IMMATURE GRANULOCYTE % 1.3 % (0-0); LYMPH # 0.7 10^3/uL (1.5-4.5); LYMPH % 6.1 % (24.0-44.0); MEAN CORPUSCULAR HEMOGLOBIN 30.5 pg (27.0-33.0); MEAN CORPUSCULAR HGB CONC 33.4 g/dl (32.0-36.5); MEAN CORPUSCULAR VOLUME 91.2 fl (80.0-96.0); MONO # 1.3 10^3/uL (0.0-0.8); MONO % 11.2 % (0.0-5.0); NEUTROPHILS # 9.6 10^3/uL (1.8-7.7); NEUTROPHILS % 80.1 % (36.0-66.0); PLATELET COUNT, AUTOMATED 316 10^3/uL (150-450); RED CELL DISTRIBUTION WIDTH 16.1 % (11.5-14.5); WHITE BLOOD COUNT 11.9 10^3/uL (4.0-10.0)
[2017-10-06] MEDS: IPRATROPIUM 0.5MG/ALBUTEROL 2.5MG INH SOL UD 3ML (DUONEB)(J7620) NEB ONE (00:08)
[2017-10-06 00:23] LABS: ABG BASE EXCESS -1.4 (-2.0-2.0); ABG HCO3 21.5 MEQ/L (22.0-26.0); ABG PARTIAL PRESSURE CO2 30.1 mmHg (35.0-45.0); ABG PARTIAL PRESSURE O2 82.5 mmHg (75.0-100.0); ABG STANDARD HCO3 23.3 MEQ/L (22.0-26.0); ABG TOTAL CO2 22.4 MEQ/L (23.0-31.0); ABG pH (ARTERIAL) 7.471 UNITS (7.350-7.450)
[2017-10-06 00:43] LABS: BLOOD UREA NITROGEN 25 MG/DL (7-18); CREATININE FOR GFR 0.66 MG/DL (0.70-1.30); GLOMERULAR FILTRATION RATE > 60.0 (>35); GLUCOSE, FASTING 95 MG/DL (83-110); SODIUM LEVEL 138 MEQ/L (136-145)
[2017-10-06 00:44] LABS: ANION GAP 7 MEQ/L (8-16); CALCIUM LEVEL 9.1 MG/DL (8.8-10.2); CARBON DIOXIDE LEVEL 28 MEQ/L (21-32); CHLORIDE LEVEL 103 MEQ/L (98-107)
[2017-10-06] MEDS: NS 500 ML IV ONE (01:00)
[2017-10-06] MEDS ORDERED: ISOVUE-370 76% 100ML VIAL (Q9967) As Ordered ONE (01:01)
--- NOTE | 2017-10-06 01:50 | REPUSA ---
CLINICAL HISTORY: Dyspnea, exclude PE. TECHNIQUE: Multiple incremental axial, coronal and oblique images are obtained from the thoracic inle t to the upper abdomen. Intravenous contrast material was administered as per pulmonary embolism prot ocol. COMMENTS: Diffusely thickened upper esophagus. Unremarkable mediastinotomy wires. There is 7.6x6.2 cm multiloculated superior mediastinal fluid collection at clinic case would be diff usely thickened esophagus in its upper third. There is excellent opacification of pulmonary arterial system without evidence for pulmonary embolism . Aorta is of normal caliber without evidence for dissection or aneurysm. There is no evidence of pleural or parenchymal mass. There are no pleural effusions. There is no evid ence of hilar or mediastinal lymphadenopathy. The heart and great vessels are within normal limits. Images of the upper abdomen demonstrate no evidence of adrenal mass. The bony structures are free of lytic or blastic lesions. IMPRESSION: No evidence for pulmonary embolism. Thickened esophagus is unchanged more prominent in its upper third. Adjacent complex fluid that mediastinal collection as detailed above. This was not present on prior e xam. Thank you for your kind referral of this patient.
--- NOTE | 2017-10-06 02:00 | REPUSA ---
CLINICAL HISTORY: Dyspnea. TECHNIQUE: Multiple axial CT images were obtained through the neck with IV contrast material. MPR cor onal and sagittal sequences were obtained. COMMENTS: Diffusely thickened upper esophagus. Partially included upper mediastinal fluid collection. Partial obliteration of the left piriform sinus. The oropharyngeal soft tissues are normal and bilaterally symmetric. There is no supra or infraglotti c laryngeal mass. The proximal trachea is normal. There is no paravertebral soft tissue mass. The salivary glands are normal. There is no deep cervical or jugular lymphadenopathy. The paravertebral soft tissue space is normal. Limited images through the posterior fossa demonstrate no evidence for tonsilar herniation. Evaluation of the visualized lung apices reveals no evidence for abnormality. IMPRESSION: Diffusely thickened upper esophagus. Partially included upper mediastinal fluid collection Partial obliteration of left piriform sinus. Thank you for your kind referral of this patient.
--- NOTE | 2017-10-06 06:43 | ED PDOC ---
Post-Departure Follow-Up pt left ama per emr. dr ch faxed ct neck and cta chest for fu Eva Martinez MD Oct 06, 2017 06:43
--- NOTE | 2017-10-06 07:38 | REP ---
PA and lateral chest: Lung baptiste are clear. Cardiac size is normal. The ava, mediastinum, and bony thorax are unremarkable. 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 Impression: There are no acute cardiopulmonary findings. No interval change. No pleural Signed by Konrad Gonzales MD 10/06/2017 07:29 A
== END 2017-10-06 02:49 | disposition left against medical advice (07) ==
LOC: M ED 10-06 00:18
DX: C15.9 Malignant neoplasm of esophagus, unspecified (principal); J98.59 Other diseases of mediastinum, not elsewhere classified; R06.00 Dyspnea, unspecified; E11.9 Type 2 diabetes mellitus without complications; I10 Essential (primary) hypertension; E78.5 Hyperlipidemia, unspecified; J45.909 Unspecified asthma, uncomplicated; J44.9 Chronic obstructive pulmonary disease, unspecified; N40.0 Benign prostatic hyperplasia without lower urinary tract symptoms; Z79.4 Long term (current) use of insulin; Z79.01 Long term (current) use of anticoagulants; Z79.899 Other long term (current) drug therapy; Z79.51 Long term (current) use of inhaled steroids; Z87.442 Personal history of urinary calculi; Z87.891 Personal history of nicotine dependence
CPT/HCPCS: 70491; 71020; 71275; 80048; 82803; 83605; 85025; 87040; 94640; 99283; Q9967

== ENCOUNTER 2017-10-10 04:35 | Inpatient (IN) | payer MEDICARE, BC, OTHER ==
[2017-10-10] MEDS: ACETAMINOPHEN TAB 650MG DOSE (2X325MG) PO (05:00)
[2017-10-10] MEDS: NS 500 ML IV (05:00)
[2017-10-10 05:04] LABS: ABG BASE EXCESS -1.6 (-2.0-2.0); ABG HCO3 19.5 MEQ/L (22.0-26.0); ABG PARTIAL PRESSURE O2 59.7 mmHg (75.0-100.0); ABG TOTAL CO2 20.3 MEQ/L (23.0-31.0); ABG pH (ARTERIAL) 7.528 UNITS (7.350-7.450)
[2017-10-10 05:05] LABS: ADD MANUAL DIFFER YES; DIFF SLIDE NUMBER 121; LEFT SHIFT POS FLAG; MEAN CORPUSCULAR HEMOGLOBIN 29.9 pg (27.0-33.0); MEAN CORPUSCULAR VOLUME 87.9 fl (80.0-96.0); PLATELET COUNT, AUTOMATED 491 10^3/uL (150-450); POSITIVE MORPH POS FLAG; WBC SCAT POS FLAG; WHITE BLOOD COUNT 13.9 10^3/uL (4.0-10.0)
[2017-10-10] MEDS ORDERED: MORPHINE 2 MG/ML 1ML SYRINGE As Ordered (05:21)
[2017-10-10] MEDS: MORPHINE 2 MG/ML 1ML SYRINGE IV ×7 (05:27→23:31)
[2017-10-10] MEDS: ACETAMINOPHEN 650 MG SUPP PR (05:30)
[2017-10-10] MEDS: DILUENT IV (05:30)
[2017-10-10] MEDS: PIPERACILLIN/TAZOBACTAM SOD 4.5 GM in APPROPRIATE DILUENT 1 EA IV (05:30)
[2017-10-10] MEDS: NS IV (05:30)
[2017-10-10 05:33] LABS: ALBUMIN 2.6 GM/DL (3.2-5.2); ALBUMIN/GLOBULIN RATIO 0.45 (1.00-1.93); ALKALINE PHOSPHATASE 113 U/L (45-117); ALT/SGPT 68 U/L (12-78); ANION GAP 14 MEQ/L (8-16); AST/SGOT 24 U/L (7-37); BILIRUBIN,DIRECT 0.2 MG/DL (0.0-0.2); BILIRUBIN,TOTAL 0.6 MG/DL (0.2-1.0); BLOOD UREA NITROGEN 20 MG/DL (7-18); CALCIUM LEVEL 8.8 MG/DL (8.8-10.2); CARBON DIOXIDE LEVEL 25 MEQ/L (21-32); CHLORIDE LEVEL 100 MEQ/L (98-107); CREATININE FOR GFR 1.17 MG/DL (0.70-1.30); GLOMERULAR FILTRATION RATE > 60.0 (>35); GLUCOSE, FASTING 234 MG/DL (83-110); POTASSIUM SERUM 3.6 MEQ/L (3.5-5.1); SODIUM LEVEL 139 MEQ/L (136-145); TOTAL PROTEIN 8.4 GM/DL (6.4-8.2)
[2017-10-10 05:37] LABS: BANDS 1 % (< 11); BASOPHILS 1 % (0-4)
[2017-10-10 05:45] LABS: LACTIC ACID SEPSIS PROTOCOL 4.3 MMOL/L (0.4-2.0)
[2017-10-10] MEDS: IPRATROPIUM 0.5MG/ALBUTEROL 2.5MG INH SOL UD 3ML (DUONEB)(J7620) NEB ×6 (06:10→20:00)
[2017-10-10] MEDS ORDERED: ISOVUE-370 76% 100ML VIAL (Q9967) As Ordered (06:10)
[2017-10-10] MEDS ORDERED: MORPHINE 2 MG/ML 1ML SYRINGE IV (08:30)
[2017-10-10] MEDS ORDERED: GLUCOSE 4 GM CHEW TABLET PO (08:30)
[2017-10-10] MEDS ORDERED: NS 1,000 ML IV (08:30)
[2017-10-10] MEDS ORDERED: DEXTROSE 50% 50 ML SYRINGE IV (08:30)
[2017-10-10] MEDS ORDERED: GLUCAGON FOR INJ 1 MG VIAL (J1610) SC (08:30)
[2017-10-10 10:32] LABS: MAGNESIUM LEVEL 2.2 MG/DL (1.8-2.4)
[2017-10-10 10:38] LABS: LACTIC ACID SEPSIS PROTOCOL 1.7 MMOL/L (0.4-2.0)
[2017-10-10] MEDS: PANTOPRAZOLE 40MG INJ (PROTONIX) (C9113) IV ×2 (12:10→20:09)
[2017-10-10] MEDS: HumaLOG INSULIN (NovoLOG) PER UNIT SC ×2 (12:11→17:27)
[2017-10-10] MEDS: VANCOMYCIN HCL 1,000 MG, VIAL MATE ADAPTER 1 EACH in D5W 250 ML IV (12:11)
[2017-10-10] MEDS: PIPERACILLIN/TAZOBACTAM SOD 3.375 GM in APPROPRIATE DILUENT 1 EA IV ×3 (13:19→23:30)
[2017-10-11] MEDS: ALBUTEROL SULFATE 2.5 MG/0.5 ML INH NEB SOLN NEB (01:06)
[2017-10-11] MEDS: MORPHINE 2 MG/ML 1ML SYRINGE IV ×8 (01:29→21:55)
[2017-10-11] MEDS: LORazepam 2 MG/ML VIAL (J2060) IV ×4 (04:34→23:59)
[2017-10-11 05:02] LABS: MEAN CORPUSCULAR HEMOGLOBIN 30.1 pg (27.0-33.0); MEAN CORPUSCULAR VOLUME 91.1 fl (80.0-96.0); RED CELL DISTRIBUTION WIDTH 16.1 % (11.5-14.5); WHITE BLOOD COUNT 19.2 10^3/uL (4.0-10.0)
[2017-10-11 05:04] LABS: ADD MANUAL DIFFER YES; DIFF SLIDE NUMBER 69; LEFT SHIFT POS FLAG; PLATELET COUNT, AUTOMATED 368 10^3/uL (150-450); POSITIVE MORPH POS FLAG; WBC SCAT POS FLAG
[2017-10-11 05:19] LABS: ALBUMIN 2.1 GM/DL (3.2-5.2); ALKALINE PHOSPHATASE 79 U/L (45-117); ALT/SGPT 42 U/L (12-78); ANION GAP 10 MEQ/L (8-16); AST/SGOT 15 U/L (7-37); BILIRUBIN,TOTAL 0.4 MG/DL (0.2-1.0); BLOOD UREA NITROGEN 26 MG/DL (7-18); CALCIUM LEVEL 8.9 MG/DL (8.8-10.2); CARBON DIOXIDE LEVEL 23 MEQ/L (21-32); CHLORIDE LEVEL 112 MEQ/L (98-107); CREATININE FOR GFR 0.95 MG/DL (0.70-1.30); GLOMERULAR FILTRATION RATE > 60.0 (>35); GLUCOSE, FASTING 264 MG/DL (83-110); POTASSIUM SERUM 4.3 MEQ/L (3.5-5.1); SODIUM LEVEL 145 MEQ/L (136-145); TOTAL PROTEIN 7.3 GM/DL (6.4-8.2)
[2017-10-11] MEDS: PIPERACILLIN/TAZOBACTAM SOD 3.375 GM in APPROPRIATE DILUENT 1 EA IV (05:45)
[2017-10-11 06:48] LABS: ANISOCYTOSIS 1+; BANDS 8 % (< 11)
[2017-10-11] MEDS ORDERED: METOPROLOL 5 MG/5 ML VIAL As Ordered (07:34)
[2017-10-11] MEDS: METOPROLOL 5 MG/5 ML VIAL IV ×2 (07:44→08:57)
[2017-10-11] MEDS: DIGOXIN INJ 0.5 MG/2 ML AMP (J1160) IV ×2 (07:44→10:17)
[2017-10-11] MEDS: IPRATROPIUM 0.5MG/ALBUTEROL 2.5MG INH SOL UD 3ML (DUONEB)(J7620) NEB (07:55)
[2017-10-11] MEDS: FUROSEMIDE 20 MG/2 ML VIAL (J1940) IV (08:15)
[2017-10-11] MEDS: PANTOPRAZOLE 40MG INJ (PROTONIX) (C9113) IV (09:07)
[2017-10-11] MEDS: HumaLOG INSULIN (NovoLOG) PER UNIT SC (09:07)
[2017-10-11] MEDS: SODIUM CHLORIDE 0.9% 1000 ML IV (09:08)
[2017-10-11] MEDS: VANCOMYCIN HCL 1,000 MG, VIAL MATE ADAPTER 1 EACH in D5W 250 ML IV (09:08)
[2017-10-11] MEDS: SCOPOLAMINE 1MG TRANSDERMAL PATCH TOP (12:15)
[2017-10-11] MEDS ORDERED: ENOXAPARIN 30 MG/0.3 ML SYR (J1650) SC (21:00)
[2017-10-12] MEDS: MORPHINE 2 MG/ML 1ML SYRINGE IV ×6 (01:20→15:43)
[2017-10-12] MEDS: LORazepam 2 MG/ML VIAL (J2060) IV ×5 (06:03→19:35)
[2017-10-12] MEDS: MORPHINE 4 MG/ML 1ML SYRINGE IV ×3 (17:58→23:56)
[2017-10-13] MEDS: LORazepam 2 MG/ML VIAL (J2060) IV ×6 (01:55→21:05)
[2017-10-13] MEDS: MORPHINE 4 MG/ML 1ML SYRINGE IV ×8 (03:21→23:26)
[2017-10-14] MEDS: LORazepam 2 MG/ML VIAL (J2060) IV ×6 (01:41→19:01)
[2017-10-14] MEDS: MORPHINE 4 MG/ML 1ML SYRINGE IV ×6 (03:00→16:25)
== END 2017-10-14 19:37 | disposition expired | DRG 871 ==
LOC: M MS5PR 10-11 16:50 → M ED 04:35 → M ED INP 10:06 → M ICU 11:25
PROVIDERS: Family Medicine
DX: A41.9 Sepsis, unspecified organism (principal); J85.3 Abscess of mediastinum; R65.21 Severe sepsis with septic shock; G93.41 Metabolic encephalopathy; J96.01 Acute respiratory failure with hypoxia; C15.3 Malignant neoplasm of upper third of esophagus; C78.7 Secondary malignant neoplasm of liver and intrahepatic bile duct; K56.7 Ileus, unspecified; J90 Pleural effusion, not elsewhere classified; Z66 Do not resuscitate; Z51.5 Encounter for palliative care; D73.5 Infarction of spleen; I48.91 Unspecified atrial fibrillation; J45.909 Unspecified asthma, uncomplicated; J38.01 Paralysis of vocal cords and larynx, unilateral; I10 Essential (primary) hypertension; B95.7 Other staphylococcus as the cause of diseases classified elsewhere; E11.9 Type 2 diabetes mellitus without complications; R57.1 Hypovolemic shock; Z92.3 Personal history of irradiation; Z95.2 Presence of prosthetic heart valve; Z87.891 Personal history of nicotine dependence; Z79.4 Long term (current) use of insulin; Z79.899 Other long term (current) drug therapy; Z93.1 Gastrostomy status